=== PATIENT | female | born 1970 | race Caucasian/White ===

== ENCOUNTER 2022-05-15 08:20 | Outpatient (CLI) | payer BC, SELFPAY | END 2022-05-15 08:21 | disposition home or self-care (01) | PROVIDERS: PCP Physician Assistant; Visit Provider Internal Medicine | DX: C79.31 Secondary malignant neoplasm of brain (principal) | CPT/HCPCS: 70553; A9575 ==

== ENCOUNTER 2022-07-21 08:52 | Outpatient (CLI) | payer BC, SELFPAY ==
--- NOTE | 2022-07-21 09:15 | CRLHL7_ITS ---
For Patients: As a result of the Century Cures Act, medical imaging exams and procedure reports are released immediately into your electronic medical record. You may view this report before your referring provider. If you have questions, please contact your health care provider. INDICATION: Metastases. Followup. COMPARISON: 05/15/2022. TECHNIQUE: Multiplanar T1, T2, FLAIR and diffusion-weighted imaging. Post gadolinium T1 weighted sequences. FINDINGS: Interval decrease in size of the ring-enhancing lesion along the cortex of the right superior lateral frontal lobe now measuring 3 mm in maximal diameter compared to 7 mm on the previous exam (compare series 18, image 36 of the current exam with series 11, image 34 of the previous exam). Similarly, interval decrease in size of the ring-enhancing lesion involving the cortex of the right parietal lobe now measuring 4 mm in maximal diameter compared to 7 mm previously (series 18, image 59 of the current exam compared to series 11, image 53 of the prior exam). Interval resolution of the metastatic lesion of the right frontal operculum (previously noted on series 11, image 70 of the prior exam). Tiny residual punctate focus of enhancement along the cortex of the superior left frontal lobe (series 8, image 28) measures approximately 2 mm in diameter and is unchanged from the prior exam. Similar tiny punctate enhancing metastases of the left superior frontal lobe and right frontal operculum which have resolved. No new abnormal enhancement or enhancing lesions. Vasogenic edema surrounding the larger metastatic lesions has also decreased. No intracranial hemorrhage. No abnormal ventricular dilatation. Intracranial vascular flow voids are preserved. No mass effect or midline shift. No restricted diffusion to suggest acute ischemia. Bilateral orbits are unremarkable. Normal appearing sella. Visualized paranasal sinuses remarkable. Left mastoid effusion. IMPRESSION: 1. Interval decrease in size of the ring-enhancing metastatic lesions of the right superior lateral frontal lobe and right parietal lobe. 2. Interval resolution of the tiny metastatic lesion of the right frontal operculum. Similarly, tiny punctate metastases of the left superior frontal lobe device with operculum have resolved. 3. Stable punctate enhancing metastasis along the cortex of the superior left frontal lobe 4. Overall, findings are consistent with response to treatment. 5. No acute intracranial abnormality Dictated by Jericho Cain MD @ 07/21/2022 3:27:10 PM (Electronically Signed)
== END 2022-07-21 08:53 | disposition home or self-care (01) ==
LOC: MRI 08:52
PROVIDERS: PCP Physician Assistant; Visit Provider Physician Assistant
DX: C79.31 Secondary malignant neoplasm of brain (principal)
CPT/HCPCS: 70553; A9575

== ENCOUNTER 2022-08-16 14:40 | Inpatient (IN) | payer BC, SELFPAY ==
[2022-08-16] VITALS (13 sets, daily range): BP systolic 64–121; BP diastolic 37–83; PULSE 97–115; RESP 18–20; TEMP 36.1–38.1; O2SAT 92–97; BMI 27.4; BMI 28.4
[2022-08-16 15:48] LABS: PCR FLU A Negative PCR FLU A (Negative); PCR FLU B Negative PCR FLU B (Negative); PCR RSV Negative PCR RSV (Negative)
--- NOTE | 2022-08-16 15:50 | ED.GENADULT ---
HPI - General Adult General Chief complaint: Weakness Stated complaint: dizzy, constant diarrhea Time Seen by Provider: 08/16/22 15:27 Source: patient History of Present Illness HPI narrative: 51-year-old female with a history of stage IV metastatic non-small cell lung cancer presents with a 4 day history of worsening weakness and now diarrhea. Initially started with headache, mild weakness. The next day which was 3 days ago she started having watery stools, proximally 5 times per day. She did try taking some Imodium 1 dose twice daily and it did help with her symptoms temporarily but she did not continue taking multiple subsequent doses each day. No blood in her stools. No known sick contacts. No fevers. She is on immunotherapy for [id number] lung cancer but no specific chemotherapies. She had been on radiation for several weeks but discontinued due to feeling poorly overall and hair loss. Not known to be hyponatremic, have potassium balance issues or other electrolyte abnormalities which can come without type of lung cancer. Is not take long-term nausea medicines but is feeling nauseated today. She accepts offer for medication when I offer. She does not have a history of C diff, denies any recent antibiotic usage. No known sick contacts. No prior history of similar symptoms. No recent surgeries. Past medical history is notable for hypertension, modified on lisinopril. She also has a history of non-small cell lung cancer, stage IV as described above. Prior but no other abdominal surgeries. Long-term meds include lisinopril, her immunotherapy and gabapentin 200 mg at bedtime. Social and family history reviewed from Oncology records. ROS is notable for generalized weakness and the GI symptoms as above, mild headache has improved. Otherwise denies times 12 systems. Related Data Home Medications Medication Instructions Recorded Confirmed ibuprofen 200 mg tablet (Advil) 1,200 mg PO BID PRN 05/06/22 07/24/22 melatonin 10 mg capsule 10 mg PO QHS 07/24/22 07/24/22 Previous Rx's Medication Instructions Recorded ondansetron 4 mg disintegrating 4 mg PO Q6H PRN nausea and 06/19/22 tablet vomiting #30 tabs prochlorperazine maleate 10 mg 10 mg PO QID PRN nausea and 06/19/22 tablet vomiting #45 tabs gabapentin 100 mg capsule 200 mg PO DAILY #60 caps 07/08/22 lisinopril 10 mg tablet 10 mg PO QDAY #60 tabs 07/08/22 Allergies Allergy/AdvReac Type Severity Reaction Status Date / Time amoxicillin Allergy Severe hives Verified 08/16/22 14:54 [facility] Medical History Tobacco use Surgical History S/P radiation therapy Social History Smoking Status: Current every day smoker Exam Const: Vital Signs, click to edit/add: Vital Signs - 24 hr 08/16/22 14:50 Temperature 99.8 F H Pulse Rate [Pulse Oximeter] 115 H Respiratory Rate 20 Blood Pressure [Ri ght Upper Arm] 97/63 Pulse Oximetry 96 Oxygen Delivery Me thod Room Air Documenting provider has reviewed patient's vital signs: yes Common normals: no apparent distress General appearance: cooperative and comfortable HENMT: Common normals: normocephalic and head/scalp atraumatic Head and scalp: normocephalic and atraumatic Mouth: oral and palatal mucosa normal Throat: posterior oropharynx normal Eye: Common normals: conjunctivae normal (Mild conjunctival pallor) Conjunctiva: conjunctiva(e) normal (Mild conjunctival pallor) Neck & C-Spine: Common normals: full ROM and no lymphadenopathy Resp: Common normals: normal respiratory effort, no use of accessory muscles and clear to auscultation bilaterally Effort & inspection: able to speak in complete sentences Auscultation: clear to auscultation bilaterally Cardio: Common normals: regular rate, regular rhythm, S1 normal heart sound, S2 normal heart sound, no murmurs and peripheral pulses 2+ throughout Rate: regular rate Rhythm: regular rhythm Heart sounds: S1 normal and S2 normal Peripheral pulses: pulses 2+ throughout GI: Other: Bowel sounds are a little hyperactive but present in all 4 quadrants. The abdomen is nondistended and soft. It is nontender. No mass. Extremity: Common normals: normal to inspection, full ROM, normal capillary refill and no pedal edema Neuro: Speech: speech normal Motor exam: no tremor noted and no movement abnormalities noted Psych: Attitude: calm and engaged Mood and affect: euthymic mood Insight: insight good Judgement: judgment good Skin: Common normals: no rashes or lesions noted General skin exam: no rashes or lesions noted Course Vital Signs Vital signs: Initial Vital Signs Temperature 99.8 F H 08/16/22 14:50 Temperature Source Temporal Artery Scan 08/16/22 14:50 Pulse Rate 115 H 08/16/22 14:50 Pulse Rhythm 08/16/22 14:50 Respiratory Rate 20 08/16/22 14:50 Blood Pressure 97/63 08/16/22 14:50 Blood Pressure Mean 74 08/16/22 14:50 Blood Pressure Position Sitting 08/16/22 14:50 Pulse Oximetry 96 08/16/22 14:50 Oxygen Delivery Method 08/16/22 14:50 Vital Signs Temperature 99.8 F H 08/16/22 14:50 Pulse Rate 115 H 08/16/22 14:50 Respiratory Rate 20 08/16/22 14:50 Blood Pressure 97/63 08/16/22 14:50 Pulse Oximetry 96 08/16/22 14:50 Oxygen Delivery Method 08/16/22 14:50 Temperature 99.8 F H 08/16/22 14:50 Pulse Rate 115 H 08/16/22 14:50 Respiratory Rate 20 08/16/22 14:50 Blood Pressure 97/63 08/16/22 14:50 Pulse Oximetry 96 08/16/22 14:50 Oxygen Delivery Method 08/16/22 14:50 Medical Decision Making MDM Narrative Medical decision making narrative: Wide differential diagnosis for the etiology of her diarrhea. C diff, colitis, high risk for electrolyte abnormalities due to [id number] lung cancer, typical gastroenteritis versus obstruction related to her cancer. Will start with fluid, C diff sample and labs. Low threshold for getting a CT though exam was initially reassuring. [place] per her request. Update: Discussed electrolyte abnormalities and renal failure with patient. I suspect the etiology is continued use of lisinopril compounded by hypotension from increased disease and debility with gastroenteritis. She does have a low-grade fever but no significant white count. I did not do a CT scan. Was given 1 L of LR, [address] Magdaleno has accepted admission for management of renal failure. She lets me know she had not taken her lisinopril this morning which is actually great. Recommend discontinuation of lisinopril for now. Awaiting C diff to determine if Imodium is safe, defer further workup of diarrhea to hospitalist team. Lab Data Lab results reviewed: Yes I reviewed the patient's lab results Labs: Lab Results 08/16/22 08/16/22 08/16/22 Range/Units 14:55 15:50 15:50 WBC 6.81 (4.50-11.00) K/uL RBC 4.44 (4.00-5.20) m/uL Hgb 14.3 (12.0-16.0) gm/dL Hct 42.0 (33.0-51.0) % MCV 95 (80-100) fL MCH 32 (26-34) pg MCHC 34 (32-36) gm/dL RDW Coeff of Bryon 15.2 (11.5-15.5) % Plt Count 183 (140-440) K/uL Neut % (Auto) 63.8 (42.0-72.0) % Lymph % (Auto) 21.7 (20-44) % Appling % (Auto) 11.6 H (0.0-11.0) % Eos % (Auto) 1.8 (0.0-7.0) % Baso % (Auto) 0.4 (0.0-3.0) % Neut # (Auto) 4.34 (1.7-7.0) K/uL Lymph # (Auto) 1.48 (0.90-2.90) K/uL Appling # (Auto) 0.80 (0.00-0.90) K/UL Eos # (Auto) 0.12 (0.00-0.50) K/uL Baso # (Auto) 0.03 (0.00-0.30) K/uL Sodium 132 L (135-149) mmol/L Potassium 3.0 L (3.6-5.1) mmol/L Chloride 96 (96-114) mmol/L Carbon Dioxide 27 (20-32) mmol/L BUN 27 H (5-24) mg/dL Creatinine 4.1 H (0.5-1.5) mg/dL Estimated Creat Clear 15.54 Estimated GFR 13 ml/min Glucose 96 (60-115) mg/dL Lactate (0.5-1.9) mmol/L Calcium 7.8 L (8.4-10.6) mg/dL Magnesium 2.2 (1.5-2.6) mg/dL Total Bilirubin 1.4 (0.1-1.5) mg/dL AST 27 (12-35) U/L ALT 30 (4-35) U/L Alkaline Phosphatase 83 (40-150) U/L Total Protein 6.7 (6.0-8.3) g/dL Albumin 3.7 (3.3-5.0) g/dL Lipase 32 (23-300) U/L SARS-CoV-2 (PCR) Negative SARS-CoV-2 (Negative) Influenza Type A (PCR) Negative PCR FLU A (Negative) Influenza Type B (PCR) Negative PCR FLU B (Negative) RSV (PCR) Negative PCR RSV (Negative) 08/16/22 08/16/22 Range/Units 15:50 15:50 WBC (4.50-11.00) K/uL RBC (4.00-5.20) m/uL Hgb (12.0-16.0) gm/dL Hct (33.0-51.0) % MCV (80-100) fL MCH (26-34) pg MCHC (32-36) gm/dL RDW Coeff of Bryon (11.5-15.5) % Plt Count (140-440) K/uL Neut % (Auto) (42.0-72.0) % Lymph % (Auto) (20-44) % Appling % (Auto) (0.0-11.0) % Eos % (Auto) (0.0-7.0) % Baso % (Auto) (0.0-3.0) % Neut # (Auto) (1.7-7.0) K/uL Lymph # (Auto) (0.90-2.90) K/uL Appling # (Auto) (0.00-0.90) K/UL Eos # (Auto) (0.00-0.50) K/uL Baso # (Auto) (0.00-0.30) K/uL Sodium (135-149) mmol/L Potassium (3.6-5.1) mmol/L Chloride (96-114) mmol/L Carbon Dioxide (20-32) mmol/L BUN (5-24) mg/dL Creatinine (0.5-1.5) mg/dL Estimated Creat Clear Estimated GFR ml/min Glucose (60-115) mg/dL Lactate 1.5 (0.5-1.9) mmol/L Calcium (8.4-10.6) mg/dL Magnesium Cancelled (1.5-2.6) mg/dL Total Bilirubin (0.1-1.5) mg/dL AST (12-35) U/L ALT (4-35) U/L Alkaline Phosphatase (40-150) U/L Total Protein (6.0-8.3) g/dL Albumin (3.3-5.0) g/dL Lipase (23-300) U/L SARS-CoV-2 (PCR) (Negative) Influenza Type A (PCR) (Negative) Influenza Type B (PCR) (Negative) RSV (PCR) (Negative) Renal failure most notable. Discharge Plan Discharge Clinical Impression: Acute renal failure, Diarrhea, Hypotension due to drugs, Acute hypokalemia Prescriptions: No Action ibuprofen [Advil] 200 mg tablet 1,200 mg PO BID PRN melatonin 10 mg capsule 10 mg PO QHS lisinopril 10 mg tablet 10 mg PO QDAY Qty: 60 0RF gabapentin 100 mg capsule 200 mg PO DAILY Qty: 60 0RF prochlorperazine maleate 10 mg tablet 10 mg PO QID MDD 4 PRN (Reason: nausea and vomiting) Qty: 45 1RF ondansetron 4 mg tablet,disintegrating 4 mg PO Q6H PRN (Reason: nausea and vomiting) Qty: 30 0RF Rx Instructions: Take for nausea or vomiting of prochlorperazine (compazine) ineffective. Follow Up/Referrals: Daysi Mendoza PA [Primary Care Provider] -
[2022-08-16 15:56] LABS: SARS PCR* Negative SARS-CoV-2 (Negative)
[2022-08-16] MEDS: LACTATED RINGERS 1000 ML 1,000 ML IV ×2 (16:00→18:40)
[2022-08-16 16:02] LABS: Lactate* 1.5 mmol/L (0.5-1.9)
[2022-08-16 16:11] LABS: Basophils Absolute Auto 0.03 K/uL (0.00-0.30); Basophils Percent Auto 0.4 % (0.0-3.0); Eosinophils Absolute Auto 0.12 K/uL (0.00-0.50); Eosinophils Percent Auto 1.8 % (0.0-7.0); Hemoglobin* 14.3 gm/dL (12.0-16.0); Immature Granulocytes Abs Auto 0.05 K/uL (0.00-0.30); Immature Granulocytes Pct Auto 0.7 %; Lymphocytes Absolute Auto 1.48 K/uL (0.90-2.90); Lymphocytes Percent Auto 21.7 % (20-44); Mean Corpuscular HGB Conc 34 gm/dL (32-36); Mean Corpuscular Hemoglobin 32 pg (26-34); Mean Corpuscular Volume 95 fL (80-100); Monocytes Percent Auto 11.6 % (0.0-11.0); Neutrophils Absolute Auto 4.34 K/uL (1.7-7.0); Neutrophils Percent Auto 63.8 % (42.0-72.0); Platelet Count* 183 K/uL (140-440); RDW Coefficient of Variation % 15.2 % (11.5-15.5); Red Blood Count 4.44 m/uL (4.00-5.20); White Blood Count* 6.81 K/uL (4.50-11.00)
[2022-08-16 16:15] LABS: Slide Review Reflex No
[2022-08-16 16:20] LABS: Chloride* 96 mmol/L (96-114)
[2022-08-16 16:21] LABS: Albumin* 3.7 g/dL (3.3-5.0); Sodium* 132 mmol/L (135-149)
[2022-08-16 16:23] LABS: Creatinine* 4.1 mg/dL (0.5-1.5); Est. Creatinine Clearance* 15.54; Estimated Glomerular Filt Rate 13 ml/min
[2022-08-16 16:24] LABS: Alanine Aminotransferase* 30 U/L (4-35); Alkaline Phosphatase* 83 U/L (40-150); Aspartate Amino Transferase* 27 U/L (12-35); Bilirubin Total* 1.4 mg/dL (0.1-1.5); Blood Urea Nitrogen* 27 mg/dL (5-24); Calcium* 7.8 mg/dL (8.4-10.6); Carbon Dioxide* 27 mmol/L (20-32); Glucose* 96 mg/dL (60-115); Lipase* 32 U/L (23-300); Total Protein* 6.7 g/dL (6.0-8.3)
[2022-08-16 16:25] LABS: Magnesium* 2.2 mg/dL (1.5-2.6)
--- NOTE | 2022-08-16 16:25 | ED.NURSE ---
gave pt warm blanket, per request
[2022-08-16] MEDS: ONDANSETRON 2 MG/ML inj 4 MG IVP (16:29)
[2022-08-16] MEDS: POTASSIUM CHLORIDE 10 MEQ CAPSULE ER 40 MEQ PO (16:53)
--- NOTE | 2022-08-16 17:22 | ED.NURSE ---
one liter of NS started per verbal order by MD Magdaleno
--- NOTE | 2022-08-16 17:39 | CRLHL7_ITS ---
For Patients: As a result of the Century Cures Act, medical imaging exams and procedure reports are released immediately into your electronic medical record. You may view this report before your referring provider. If you have questions, please contact your health care provider. Indication: Fever, JOLENE, diarrhea Technique: Noncontrast CT of the chest, abdomen pelvis. Please note that all CT scans at this facility use dose modulation, iterative reconstruction, and/or weight-based dosing when appropriate to reduce radiation dose to as low as reasonably achievable. Comparison: None available Findings: Thyroid unremarkable. Neck base unremarkable. Central airways appear patent. Esophagus is decompressed. Normal heart size. No pericardial effusion. Severe coronary artery calcifications. Normal course and caliber of thoracic aorta and pulmonary arteries. Right axillary lymphadenopathy (series 2, image 23) within a right axillary lymph node measuring 1.5 cm. There is soft tissue thickening along the right lateral chest wall (series 2, image 49). No discrete breast mass. Bibasilar atelectasis. Right middle lobe pulmonary nodule measuring less than 6 mm (series 2, image 59). There is some peripheral, subpleural ground-glass opacities within the bilateral upper lobes. There is mild paraseptal emphysema. There is no dominant pulmonary nodule or mass. No pleural effusion or pneumothorax. Normal liver size and contour. Gallbladder unremarkable. No biliary dilatation. Bilateral adrenal gland thickening. No hydronephrosis. Unremarkable spleen, pancreas, stomach and duodenum. Normal course and caliber of the abdominal aorta and the IVC. Moderate to severe atherosclerotic disease of the abdominal aorta. No significant lymphadenopathy. Bladder and uterus unremarkable. Liquid stool throughout the colon. There is severe colonic wall thickening involving the ascending colon (series 2, image 132) as well as the proximal transverse colon. There are additional areas of colonic wall thickening involving the distal transverse colon and descending colon. No definite pneumatosis. No significant free fluid in the pelvis. No evidence of abscess. No acute osseous abnormality. Impression: 1. Severe colonic wall thickening and pericolonic inflammation consistent with an infectious or inflammatory colitis. 2. Right axillary lymphadenopathy. Correlate with history of malignancy. 3. Right lateral chest wall skin thickening. Correlate with direct visualization. Please note that all CT scans at this facility use dose modulation, iterative reconstruction, and/or weight-based dosing when appropriate to reduce radiation dose to as low as reasonably achievable. Dictated by Isaias Ray MD @ 08/16/2022 7:07:57 PM (Electronically Signed)
[2022-08-16] MEDS: 0.9 % SODIUM CHLORIDE 1000 ml 1,000 ML IV (17:40)
--- NOTE | 2022-08-16 17:52 | ED.NURSE ---
RN to RN report given. Daughter with pt during transport from ED to [facility]. pt belongings with daughter.
--- NOTE | 2022-08-16 18:47 | PM.IMHP1 ---
Hospitalist- H&P: HPI History of Present Illness Date Seen: 08/16/22 Chief complaint: dizzy, constant dhiarrea Narrative: Renea Iyer is a 51 year old female with metastatic non-small cell lung cancer admitted through the emergency department with 1 week history of diarrhea and abdominal pain. Patient reports she was generally doing fairly well until about 1 week ago when she had onset of nonbloody watery diarrhea. She has had multiple episodes every day. She has had some headache with this and she reports an upset stomach with some mild constant abdominal discomfort. She has been able to eat but is eating very little because she has no appetite. She has not had vomiting. She is not aware of a fever though she has had a sense of fever and chills at times. She is taking Imodium which seems to help. She was diagnosed with high-grade metastatic adenocarcinoma in a lump on her chest April 2022. Subsequent evaluation showed this was from lung primary. She has metastatic disease to her brain. She underwent radiation treatment to her brain metastases and her right chest wall. She poorly tolerated it and it was discontinued. She is undergoing immune therapy with Nivolumab. She has had 3 previous treatments, 3 weeks apart. The last treatment, 3rd cycle, was about 16 days ago. No previous adverse reaction to immune therapy. She has no previous history of gastrointestinal problems. She reports no other recent illness. No respiratory symptoms, cough, cold, sore throat, shortness of breath. No urinary problems. Gastrointestinal problems as above. Review of Systems Narrative: Complete review of systems is unremarkable except as noted above PFSH PFSH Medical History Acute renal failure Brain metastases Colitis Hypertension Hypokalemia Non-small cell lung cancer Sepsis Tobacco use Surgical History (Updated 08/16/22 @ 19:31 by Junior Magdaleno MD) History of section S/P radiation therapy Family History (Updated 08/16/22 @ 19:32 by Junior Magdaleno MD) Father Melanoma Colon cancer Social History (Updated 08/16/22 @ 19:34 by Junior Magdaleno MD) Narrative: Renea lives in [place] with her daughter, Mariam, who is also healthcare power of bankruptcy attorney. Code status is DNR. She smokes a half pack of cigarettes a day. She does not drink alcohol. She does not use recreational drugs. She works at [employer] Smoking Status: Current every day smoker Meds Home Medications and Allergies Home Medications Medication Instructions Recorded Confirmed Type ibuprofen 200 mg tablet (Advil) 1,200 mg PO BID PRN 05/06/22 07/24/22 History melatonin 10 mg capsule 10 mg PO QHS 07/24/22 07/24/22 History Allergies Allergy/AdvReac Type Severity Reaction Status Date / Time amoxicillin Allergy Severe hives Verified 08/16/22 14:54 Exam Narrative: Exam Narrative: She is alert and appears in no distress. She gives her own history. Eyes are normal. Sclerae nonicteric. Oropharynx with dry mucous membranes. Otherwise normal. Neck is supple without mass or adenopathy or tenderness. Respirations are clear to auscultation. Cardiovascular: S1, S2, regular tachycardia. No murmur gallop or rub. Abdomen: Bowel sounds active. Abdomen is soft. She has [id number] right-sided tenderness and mild diffuse tenderness. No mass. External genitalia normal. Extremities are somewhat cool to touch. She has diminished pedal pulses. Somewhat sluggish capillary refill. No edema. Const: Vital Signs, click to edit/add: Vital Signs - 24 hr 08/16/22 14:50 08/16/22 17:35 Temperature 99.8 F H 100.5 F H Pulse Rate [Pulse Oximeter] 115 H 110 H Respiratory Rate 20 18 Blood Pressure [Ri ght Upper Arm] 97/63 85/56 L Pulse Oximetry 96 95 Oxygen Delivery Me thod Room Air Room Air Documenting provider has reviewed patient's vital signs: yes Hospitalist - H&P: Result Labs Labs: Short CBC 08/16/22 Range/Units 15:50 WBC 6.81 (4.50-11.00) K/uL Hgb 14.3 (12.0-16.0) gm/dL Hct 42.0 (33.0-51.0) % Plt Count 183 (140-440) K/uL BMP 08/16/22 15:50 Sodium 132 L Potassium 3.0 L Chloride 96 Carbon Dioxide 27 BUN 27 H Creatinine 4.1 H Glucose 96 Calcium 7.8 L Liver Function 08/16/22 Range/Units 15:50 Total Bilirubin 1.4 (0.1-1.5) mg/dL AST 27 (12-35) U/L ALT 30 (4-35) U/L Alkaline Phosphatase 83 (40-150) U/L Albumin 3.7 (3.3-5.0) g/dL Assessment and Plan Assessment and plan (1) Sepsis: Problem comment: Patient has fever, tachycardia, hypotension. Likely due to colitis seen on CT scan. Treat with methylprednisolone and broad-spectrum antibiotics and fluids. Monitor for need for pressors. Status: Acute (2) Colitis: Problem comment: CT 08/16/2022 shows severe colitis in ascending and proximal transverse colon and patchy colitis through distal transverse and descending colon. Possibly due to Nivolumab/immune checkpoint inhibitor colitis. When stable consider flex sig. C diff and stool cultures pending. Status: Acute (3) Acute renal failure: Problem comment: Combination of dehydration, hypotension, sepsis, lisinopril, ibuprofen. Fluid resuscitation. Hold lisinopril and ibuprofen. Renally dose medications. Monitor I&O. Status: Acute (4) Non-small cell lung cancer: Status: Acute (5) Brain metastases: Status: Acute (6) Hypokalemia: Problem comment: Replace and follow Status: Acute (7) Hyponatremia: Problem comment: Monitor with fluid resuscitation Status: Acute Plan Admitted to CCU for management of sepsis. If needing pressors may benefit from ICU care in tertiary care center. 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 Oncology and GI consults. Total time spent today is 100 minutes in critical care evaluation and treatment
[2022-08-16 18:59] LABS: Appearance Urine Turbid (Clear); Bilirubin Urine 3+ (Negative); Blood Urine Trace-lysed (Negative); Color Urine Yellow (Yellow); Glucose Urine Negative (Negative); Ketones Urine Trace (Negative); Leukocyte Esterase Urine Negative (Negative); Nitrite Urine Positive (Negative); Protein Urine 2+ (Negative); Specific Gravity Urine >= 1.030 (1.000-1.030); Urobilinogen Urine 0.2 (0.2-1.0); pH Urine 5.5 (5.0-8.5)
[2022-08-16] MEDS: METHYLPREDNISOLONE SOD SUCC 62.5 MG/ML (125) 125 MG IVP (19:06)
[2022-08-16 19:08] LABS: Free T4 Free Thyroxine* 0.57 ng/dL (0.70-1.85)
[2022-08-16 19:25] LABS: C.Difficile Negative (Negative); CDIFFEPI 027 PRESUMPTIVE NEGATIVE (Negative)
[2022-08-16 19:25] LABS: Troponin I* 0.02 ng/mL (0.01-0.04)
[2022-08-16] MEDS: LACTATED RINGERS 1000 ML 1,000 ML 125 ML IV (19:30)
[2022-08-16 20:07] LABS: Bacteria Urine Few; Squamous Epithelial Cell Urine Moderate (None-Few)
[2022-08-16 20:08] LABS: Amorphous Sediment Urine Few; Coarse Granular Casts Urine Few; Hyaline Casts Urine Moderate (None-Few)
[2022-08-16 20:09] LABS: Other Casts Urine Few
[2022-08-16] MEDS: 0.9 % SODIUM CHLORIDE 250 ml IV (21:34)
[2022-08-16] MEDS: SODIUM CHLORIDE 0.9 % (FLUSH) 10 ML SYRINGE 5 ML IVF ×2 (21:34)
[2022-08-16] MEDS: POTASSIUM BICARB 25 MEQ EFFERVESCENT TAB PO (23:19)
[2022-08-16] MEDS: LOPERAMIDE HCL 2 MG CAPSULE PO (23:20)
[2022-08-17] VITALS (7 sets, daily range): BP systolic 115–157; BP diastolic 80–105; PULSE 66–95; RESP 16–18; TEMP 36.6–37.2; O2SAT 93–97
[2022-08-17] MEDS: LACTATED RINGERS 1000 ML 1,000 ML 125 ML IV (03:55)
[2022-08-17 06:26] LABS: Hematocrit 34.4 % (33.0-51.0); Immature Granulocytes Abs Auto 0.05 K/uL (0.00-0.30); Immature Granulocytes Pct Auto 1.1 %; Mean Corpuscular HGB Conc 35 gm/dL (32-36); Mean Corpuscular Hemoglobin 32 pg (26-34); Mean Corpuscular Volume 93 fL (80-100); Monocytes Percent Auto 1.5 % (0.0-11.0); Neutrophils Percent Auto 86.4 % (42.0-72.0); Platelet Count* 174 K/uL (140-440); RDW Coefficient of Variation % 14.5 % (11.5-15.5); Red Blood Count 3.72 m/uL (4.00-5.20); White Blood Count* 4.53 K/uL (4.50-11.00)
[2022-08-17 06:29] LABS: Slide Review Reflex No
[2022-08-17 06:35] LABS: Lactate* 0.8 mmol/L (0.5-1.9)
[2022-08-17 06:40] LABS: Albumin* 3.2 g/dL (3.3-5.0); Chloride* 106 mmol/L (96-114)
[2022-08-17 06:41] LABS: Potassium* 3.9 mmol/L (3.6-5.1); Sodium* 134 mmol/L (135-149)
[2022-08-17] MEDS: LOPERAMIDE HCL 2 MG CAPSULE PO (06:42)
[2022-08-17 06:43] LABS: Creatinine* 1.4 mg/dL (0.5-1.5); Est. Creatinine Clearance* 43.74; Estimated Glomerular Filt Rate 46 ml/min
[2022-08-17] MEDS: METHYLPREDNISOLONE SOD SUCC 62.5 MG/ML (125) IVP ×2 (06:43→19:59)
[2022-08-17 06:44] LABS: Alanine Aminotransferase* 30 U/L (4-35); Alkaline Phosphatase* 71 U/L (40-150); Aspartate Amino Transferase* 25 U/L (12-35); Bilirubin Direct* 0.3 mg/dL (0.0-0.5); Bilirubin Total* 0.8 mg/dL (0.1-1.5); Blood Urea Nitrogen* 19 mg/dL (5-24); Calcium* 7.4 mg/dL (8.4-10.6); Carbon Dioxide* 24 mmol/L (20-32); Glucose* 140 mg/dL (60-115); Total Protein* 5.9 g/dL (6.0-8.3)
[2022-08-17 06:45] LABS: Magnesium* 2.1 mg/dL (1.5-2.6)
--- NOTE | 2022-08-17 06:51 | PC.NURSE ---
Shift note: Pt BPs up from 90ies to 120-150ies, she denies nausea, is afebrile. Pt received a dose of Imodium for diarrhea in PM and has had 1 incontinent stool overnight. Arroyo Cath is intact and draining, urine appears more clear and is geochemical manager this morning.
[2022-08-17 07:08] LABS: Troponin I* < 0.01 ng/mL (0.01-0.04)
[2022-08-17 07:24] LABS: C Reactive Protein* 41.1 mg/dL (0.5-1.0)
--- NOTE | 2022-08-17 11:03 | NUTR.NU ---
RDN with nutrition screen related to patient with cancer dx and currently on treatment. RDN visited with patient and daughter whom reported her weight has been stable recently (08/16/22: 170 lbs; 07/31/22: 172 lbs; 07/08/23: 170 lbs). She is receiving palliative treatment currently for metastatic non-small cell lung cancer with mets. Patient reports her appetite has been good and she is able to eat multiple meals daily. She does not drink nutritional supplements at home. She declined scheduled supplements/snacks at this time. Current diet is full liquids. She had no questions or concerns at this time. RDN will continue to monitor and follow-up prn.
--- NOTE | 2022-08-17 13:43 | P.IMPN_ITS ---
Progress Note: A&P Assessment and plan (1) Sepsis: Problem details: - patient admitted with fever, tachycardia, hypotension. Likely due to colitis seen on CT scan, also has grossly abnormal UA - blood, urine, and stool cultures currently NGTD - continue methylprednisolone, broad-spectrum antibiotics - patient with significant improvement on hospital day 1, we will stop IV fluids given po intake, moved to floor care Status: Acute (2) Colitis: Problem details: - CT 08/16/2022 shows severe colitis in ascending and proximal transverse colon and patchy colitis through distal transverse and descending colon. Possibly due to Nivolumab/immune checkpoint inhibitor colitis. When stable consider flex sig. C diff negative, stool cultures pending. Status: Acute (3) Acute renal failure: Problem details: - Combination of dehydration, hypotension, sepsis, lisinopril, ibuprofen - responded well to IVF resuscitation - continue to hold lisinopril and ibuprofen Status: Acute (4) Non-small cell lung cancer: Problem details: - sees Oncology locally Status: Acute (5) Brain metastases: Status: Acute (6) Hypokalemia: Problem details: - Replace and follow Status: Acute (7) Hyponatremia: Problem details: - stable/improved Status: Acute Plan - per above - remove Arroyo - Adan hose and SCDs for ppx - await culture results, continue Primaxin - PT and OT following Subjective Date Seen: 08/17/22 Interval history: Patient improved overnight, no concerns from nursing team. I see Renea this morning, she is feeling significantly better and requesting discharge home. She is amenable to staying in the hospital to await culture results, given her severity of illness upon admission and her comorbidities. She has no concerns for hospitalist team. Exam Narrative: Exam Narrative: GEN: Alert and oriented, answering questions appropriately HEENT: Normal external ears, EOMIs bilaterally, no scleral icterus CV: RRR, No concerning murmurs, rubs, or gallops R: LCTA bilaterally without concerning wheezing, rales, or rhonchi Ab: Soft and nontender, no concerning masses Ext: wwp, no concerning edema Skin: No concerning skin lesions or rashes on exposed skin Neuro: Nonfocal Psych: Appropriate Const: Vital Signs, click to edit/add: Vital Signs - 24 hr 08/16/22 14:50 08/16/22 17:35 08/16/22 18:08 Temperature 99.8 F H 100.5 F H 97 F L Pulse Rate Pulse Rate [Apical ] 114 H Pulse Rate [Pulse Oximeter] 115 H 110 H Respiratory Rate 20 18 20 Blood Pressure [Le ft Arm] 83/55 L Blood Pressure [Ri ght Upper Arm] 97/63 85/56 L Pulse Oximetry 96 95 97 Oxygen Delivery Me thod Room Air Room Air Room Air 08/16/22 19:00 08/16/22 18:15 08/16/22 18:30 Temperature Pulse Rate 104 H Pulse Rate [Apical ] Pulse Rate [Pulse Oximeter] Respiratory Rate Blood Pressure [Le ft Arm] 64/37 L 85/53 L Blood Pressure [Ri ght Upper Arm] Pulse Oximetry Oxygen Delivery Me thod 08/16/22 18:45 08/16/22 18:08 08/16/22 19:20 Temperature 99.6 F Pulse Rate Pulse Rate [Apical ] 108 H Pulse Rate [Pulse Oximeter] Respiratory Rate 18 Blood Pressure [Le ft Arm] 93/57 L 93/65 Blood Pressure [Ri ght Upper Arm] Pulse Oximetry 92 93 Oxygen Delivery Va thod Room Air Room Air 08/16/22 20:20 08/16/22 19:44 08/16/22 21:22 Temperature 99.4 F Pulse Rate 99 Pulse Rate [Apical ] 103 H 103 H Pulse Rate [Pulse Oximeter] Respiratory Rate 18 18 Blood Pressure [Le ft Arm] 91/63 Blood Pressure [Ri ght Upper Arm] Pulse Oximetry 92 Oxygen Delivery Va thod Room Air 08/16/22 23:00 08/16/22 23:00 08/16/22 23:44 Temperature 99.4 F Pulse Rate 99 Pulse Rate [Apical ] Pulse Rate [Pulse Oximeter] 97 Respiratory Rate 18 18 Blood Pressure [Le ft Arm] 121/83 Blood Pressure [Ri ght Upper Arm] Pulse Oximetry 93 Oxygen Delivery Me thod Room Air 08/17/22 03:00 08/17/22 03:00 08/17/22 03:00 Temperature 98.1 F Pulse Rate 94 Pulse Rate [Apical ] Pulse Rate [Pulse Oximeter] 94 Respiratory Rate 18 16 Blood Pressure [Le ft Arm] 151/98 H Blood Pressure [Ri ght Upper Arm] Pulse Oximetry 93 Oxygen Delivery Va thod Room Air 08/17/22 07:15 08/17/22 07:20 08/17/22 07:20 Temperature 98.3 F Pulse Rate 91 Pulse Rate [Apical ] Pulse Rate [Pulse Oximeter] 93 93 Respiratory Rate 16 16 Blood Pressure [Le ft Arm] 147/105 H Blood Pressure [Ri ght Upper Arm] Pulse Oximetry 93 Oxygen Delivery Me thod Room Air 08/17/22 10:54 Temperature 98.1 F Pulse Rate Pulse Rate [Apical ] Pulse Rate [Pulse Oximeter] 95 Respiratory Rate 18 Blood Pressure [Le ft Arm] 136/95 H Blood Pressure [Ri ght Upper Arm] Pulse Oximetry 97 Oxygen Delivery Me thod Room Air Labs Labs: Laboratory Results - last 24 hr 08/16/22 08/16/22 08/16/22 14:55 15:50 15:50 WBC 6.81 RBC 4.44 Hgb 14.3 Hct 42.0 MCV 95 MCH 32 MCHC 34 RDW Coeff of Bryon 15.2 Plt Count 183 Neut % (Auto) 63.8 Lymph % (Auto) 21.7 [place] % (Auto) 11.6 H Eos % (Auto) 1.8 Baso % (Auto) 0.4 Neut # (Auto) 4.34 Lymph # (Auto) 1.48 [place] # (Auto) 0.80 Eos # (Auto) 0.12 Baso # (Auto) 0.03 Sodium 132 L Potassium 3.0 L Chloride 96 Carbon Dioxide 27 BUN 27 H Creatinine 4.1 H Estimated Creat Clear 15.54 Estimated GFR 13 Glucose 96 Lactate Calcium 7.8 L Magnesium 2.2 Total Bilirubin 1.4 Direct Bilirubin AST 27 ALT 30 Alkaline Phosphatase 83 Troponin I 0.02 C-Reactive Protein 45.0 H Total Protein 6.7 Albumin 3.7 Lipase 32 Free T4 Urine Color Urine Appearance Urine pH Ur Specific [place] Urine Protein Urine Glucose (UA) Urine Ketones Urine Blood Urine Nitrite Urine Bilirubin Urine Urobilinogen Ur Leukocyte Esterase Urine RBC Urine WBC Ur Squamous Epith Cells Amorphous Sediment Urine Bacteria Hyaline Casts Coarse Granular Casts Other Casts Stl C.difficile Tox PCR St C. diff Tox Epid 027 SARS-CoV-2 (PCR) Negative SARS-CoV-2 Influenza Type A (PCR) Negative PCR FLU A Influenza Type B (PCR) Negative PCR FLU B RSV (PCR) Negative PCR RSV 08/16/22 08/16/22 08/16/22 15:50 15:50 15:50 WBC RBC Hgb Hct MCV MCH MCHC RDW Coeff of [place] Plt Count Neut % (Auto) Lymph % (Auto) [place] % (Auto) Eos % (Auto) Baso % (Auto) Neut # (Auto) Lymph # (Auto) [place] # (Auto) Eos # (Auto) Baso # (Auto) Sodium Potassium Chloride Carbon Dioxide BUN Creatinine Estimated Creat Clear Estimated GFR Glucose Lactate 1.5 Calcium Magnesium Cancelled Total Bilirubin Direct Bilirubin AST ALT Alkaline Phosphatase Troponin I C-Reactive Protein Total Protein Albumin Lipase Free T4 0.57 L Urine Color Urine Appearance Urine pH Ur Specific [place] Urine Protein Urine Glucose (UA) Urine Ketones Urine Blood Urine Nitrite Urine Bilirubin Urine Urobilinogen Ur Leukocyte Esterase Urine RBC Urine WBC Ur Squamous Epith Cells Amorphous Sediment Urine Bacteria Hyaline Casts Coarse Granular Casts Other Casts Stl C.difficile Tox PCR St C. diff Tox Epid 027 SARS-CoV-2 (PCR) Influenza Type A (PCR) Influenza Type B (PCR) RSV (PCR) 08/16/22 08/16/22 08/17/22 17:36 18:06 05:54 WBC 4.53 RBC 3.72 L Hgb 12.0 Hct 34.4 MCV 93 MCH 32 MCHC 35 RDW Coeff of [place] 14.5 Plt Count 174 Neut % (Auto) 86.4 H Lymph % (Auto) 11.0 L [place] % (Auto) 1.5 Eos % (Auto) 0.0 Baso % (Auto) 0.0 Neut # (Auto) 3.90 Lymph # (Auto) 0.50 L [place] # (Auto) 0.10 Eos # (Auto) 0.00 Baso # (Auto) 0.00 Sodium Potassium Chloride Carbon Dioxide BUN Creatinine Estimated Creat Clear Estimated GFR Glucose Lactate Calcium Magnesium Total Bilirubin Direct Bilirubin AST ALT Alkaline Phosphatase Troponin I C-Reactive Protein Total Protein Albumin Lipase Free T4 Urine Color Yellow Urine Appearance Turbid A Urine pH 5.5 Ur Specific [place] >= 1.030 Urine Protein 2+ A Urine Glucose (UA) Negative Urine Ketones Trace A Urine Blood Trace-lysed A Urine Nitrite Positive A Urine Bilirubin 3+ A Urine Urobilinogen 0.2 Ur Leukocyte Esterase Negative Urine RBC 2-5 A Urine WBC 2-5 Ur Squamous Epith Cells Moderate A Amorphous Sediment Few A Urine Bacteria Few A Hyaline Casts Moderate A Coarse Granular Casts Few A Other Casts Few A Stl C.difficile Tox PCR Negative St C. diff Tox Epid 027 PRESUMPTIVE NEGATIVE SARS-CoV-2 (PCR) Influenza Type A (PCR) Influenza Type B (PCR) RSV (PCR) 08/17/22 08/17/22 05:54 05:54 WBC RBC Hgb Hct MCV MCH MCHC RDW Coeff of [place] Plt Count Neut % (Auto) Lymph % (Auto) [place] % (Auto) Eos % (Auto) Baso % (Auto) Neut # (Auto) Lymph # (Auto) [place] # (Auto) Eos # (Auto) Baso # (Auto) Sodium 134 L Potassium 3.9 Chloride 106 Carbon Dioxide 24 BUN 19 Creatinine 1.4 Estimated Creat Clear 43.74 Estimated GFR 46 Glucose 140 H Lactate 0.8 Calcium 7.4 L Magnesium 2.1 Total Bilirubin 0.8 Direct Bilirubin 0.3 AST 25 ALT 30 Alkaline Phosphatase 71 Troponin I < 0.01 L C-Reactive Protein 41.1 H Total Protein 5.9 L Albumin 3.2 L Lipase Free T4 Urine Color Urine Appearance Urine pH Ur Specific [place] Urine Protein Urine Glucose (UA) Urine Ketones Urine Blood Urine Nitrite Urine Bilirubin Urine Urobilinogen Ur Leukocyte Esterase Urine RBC Urine WBC Ur Squamous Epith Cells Amorphous Sediment Urine Bacteria Hyaline Casts Coarse Granular Casts Other Casts Stl C.difficile Tox PCR St C. diff Tox Epid 027 SARS-CoV-2 (PCR) Influenza Type A (PCR) Influenza Type B (PCR) RSV (PCR)
--- NOTE | 2022-08-17 14:29 | PC.NURSE ---
End of shift. pt has been very pleasant. no pain. sister is here all day and she is loving and caring. IV was patent and later it was SL. PT and OT worked with here. Cruz was d/c @ 1100 400 out. she had a BM and a tiny amount of urine. she is up with SBA, she is alert x4. no nausea today but her appetite is poor. she is drinking well 1200 po in. tele shows NSR. she is getting IV antibiotics and steroids. she was d/c from the unit and is a floor pt.
[2022-08-17] MEDS: SODIUM CHLORIDE 0.9 % (FLUSH) 10 ML SYRINGE 5 ML IVF (20:01)
[2022-08-17] MEDS: MELATONIN 3 MG TABLET 9 MG PO (20:02)
[2022-08-18 03:00] VITALS: BP 133/65; PULSE 74; RESP 16; TEMP 36.4; O2SAT 93
[2022-08-18 06:38] LABS: Basophils Absolute Auto 0.01 K/uL (0.00-0.30); Basophils Percent Auto 0.2 % (0.0-3.0); Hemoglobin* 10.8 gm/dL (12.0-16.0); Immature Granulocytes Abs Auto 0.04 K/uL (0.00-0.30); Immature Granulocytes Pct Auto 0.8 %; Mean Corpuscular HGB Conc 35 gm/dL (32-36); Mean Corpuscular Hemoglobin 32 pg (26-34); Mean Corpuscular Volume 91 fL (80-100); Monocytes Percent Auto 3.1 % (0.0-11.0); Neutrophils Percent Auto 85.9 % (42.0-72.0); Platelet Count* 173 K/uL (140-440); RDW Coefficient of Variation % 14.6 % (11.5-15.5); Red Blood Count 3.41 m/uL (4.00-5.20)
--- NOTE | 2022-08-18 06:40 | PC.NURSE ---
Patient is alert and oriented x4, denies pain on assessment. IV antibiotic infused. Independent in room, continent of bowel and bladder. VSS on RA, appears stable; will call appropriately. Call light within reach.
[2022-08-18 06:42] LABS: Slide Review Reflex No
[2022-08-18 06:53] LABS: Albumin* 3.2 g/dL (3.3-5.0); Chloride* 105 mmol/L (96-114); Sodium* 137 mmol/L (135-149)
[2022-08-18 06:54] LABS: Potassium* 3.6 mmol/L (3.6-5.1)
[2022-08-18 06:56] LABS: Creatinine* 0.9 mg/dL (0.5-1.5); Est. Creatinine Clearance* 68.04; Estimated Glomerular Filt Rate 78 ml/min
[2022-08-18 06:57] LABS: Alanine Aminotransferase* 46 U/L (4-35); Alkaline Phosphatase* 65 U/L (40-150); Aspartate Amino Transferase* 38 U/L (12-35); Bilirubin Direct* 0.3 mg/dL (0.0-0.5); Bilirubin Total* 0.6 mg/dL (0.1-1.5); Blood Urea Nitrogen* 16 mg/dL (5-24); Carbon Dioxide* 25 mmol/L (20-32); Glucose* 150 mg/dL (60-115); Total Protein* 5.8 g/dL (6.0-8.3)
[2022-08-18 06:58] LABS: Calcium* 7.9 mg/dL (8.4-10.6)
[2022-08-18 07:17] LABS: C Reactive Protein* 21.3 mg/dL (0.5-1.0)
[2022-08-18 07:21] VITALS: PULSE 82
[2022-08-18 07:25] VITALS: BP 141/92; PULSE 87; RESP 16; TEMP 36.8; O2SAT 95
[2022-08-18] MEDS: predniSONE 20 MG TABLET 60 MG PO (09:27)
[2022-08-18] MEDS: SODIUM CHLORIDE 0.9 % (FLUSH) 10 ML SYRINGE 5 ML IVF (09:29)
[2022-08-18 11:15] VITALS: BP 154/96; PULSE 88; RESP 16; TEMP 37.1; O2SAT 96
--- NOTE | 2022-08-18 11:41 | P.DS_ITS ---
DS: Providers Provider Date Seen: 08/18/22 Date of admission: 08/16/22 18:23 Primary care physician: SUGAR Rodriguez Admitting Clinician: Junior Magdaleno MD Consults: OT and PT Attending Physician on discharge: Paulette Starks MD Date of Discharge: 08/18/22 DS: Diagnosis Discharge Diagnosis (1) Colitis: Status: Acute Problem details: - patient admitted with fever, tachycardia, hypotension, likely 2/2 to colitis seen on 08/16/22 CT scan (infectious vs iatrogenic from Nivolumab) - blood, urine, and stool cultures currently NGTD - Significant improvement with steroids and broad-spectrum antibiotics - patient with significant improvement on hospital day 1; advanced diet and had no further diarrhea/vomiting, requesting d/c home on hospital day 2 - consider outpatient scope when stable if consistent with goals of care (2) Acute renal failure: Status: Acute Problem details: - Combination of dehydration, hypotension, sepsis, lisinopril, ibuprofen - responded well to IVF resuscitation, Creatinine <1 on discharge - Lisinopril and Ibuprofen held during stay (3) Non-small cell lung cancer: Status: Acute Problem details: - sees Oncology locally, known metastatic disease (4) Hypokalemia: Status: Acute Problem details: - Replace and follow, normal on discharge (5) Hyponatremia: Status: Acute Problem details: - stable/improved to normal upon discharge (6) Normocytic anemia: Status: Acute Problem details: - noted on day of discharge; likely 2/2 fluid resuscitation, no evidence of acute bleeding DS: Summary Hospital Course Hospital Course: Renea is a very pleasant 51-year-old female who was admitted to the hospital with nausea vomiting and diarrhea. Her CT scan exhibited colitis and her admission findings (fever, leukocytosis, JOLENE, hypotension) were consistent with sepsis. There was concern that colitis was either infectious versus iatrogenic in nature given recent chemotherapy treatment (known metastatic cancer). Steroids and antibiotics were initiated, and patient had significant improvement on hospital day 1. She advanced diet, ambulated without assistance, had no further symptoms or concerns for hospitalist team, requesting discharge home on hospital day 2. Patient lives with daughter and has followup scheduled with Oncology in 48 hours. Renea was discharged home in improved condition on oral steroids and antibiotics on 08/18/22. Status at Discharge Functional status at discharge: independent ambulation Overall status at discharge: patient is progressing back to baseline Time Spent with Patient Time attestation: Total time spent providing and/or coordinating discharge services: Time spent: Greater than 30 minutes Specific discharge activities: Reviewing plan of care with Oncology team, medication reconciliation, patient updates, documentation Exam Narrative: Exam Narrative: GEN: Alert and oriented, sitting up in bed and appears nontoxic. Speaking in full sentences HEENT: Normal external ears, EOMIs bilaterally, no scleral icterus CV: RRR, soft systolic murmur without concerning features noted R: LCTA bilaterally without concerning wheezing, rales, or rhonchi Ext: wwp, no concerning edema Skin: Hyperpigmented, indurated lesion on right chest wall is stable Neuro: Nonfocal Psych: Appropriate Const: Vital Signs, click to edit/add: Vital Signs - 24 hr 08/17/22 15:00 08/17/22 15:00 08/17/22 15:00 Temperature 97.8 F Pulse Rate 91 Pulse Rate [Apical ] Pulse Rate [Pulse Oximeter] 89 89 Respiratory Rate 18 18 Blood Pressure [Le ft Arm] 157/93 H Pulse Oximetry 96 Oxygen Delivery Me thod Room Air 08/17/22 19:00 08/17/22 23:00 08/17/22 23:00 Temperature 98.9 F 97.9 F Pulse Rate Pulse Rate [Apical ] Pulse Rate [Pulse Oximeter] 94 94 66 Respiratory Rate 16 16 16 Blood Pressure [Le ft Arm] 142/99 H 115/80 Pulse Oximetry 95 94 Oxygen Delivery Ms thod Room Air Room Air 08/18/22 03:00 08/17/22 23:00 08/18/22 07:21 Temperature 97.5 F L Pulse Rate 88 82 Pulse Rate [Apical ] Pulse Rate [Pulse Oximeter] 74 Respiratory Rate 16 Blood Pressure [Le ft Arm] 133/65 Pulse Oximetry 93 Oxygen Delivery Me thod Room Air 08/18/22 07:25 Temperature 98.2 F Pulse Rate Pulse Rate [Apical ] 87 Pulse Rate [Pulse Oximeter] 87 Respiratory Rate 16 Blood Pressure [Le ft Arm] 141/92 H Pulse Oximetry 95 Oxygen Delivery Ms thod Room Air DS: Data Data Completed and Pending Labs on day of discharge: Labs from last 24 hours 08/18/22 08/18/22 06:07 06:07 WBC 5.20 RBC 3.41 L Hgb 10.8 L Hct 31.0 L MCV 91 MCH 32 MCHC 35 RDW Coeff of Bryon 14.6 Plt Count 173 Neut % (Auto) 85.9 H Lymph % (Auto) 10.0 L [place] % (Auto) 3.1 Eos % (Auto) 0.0 Baso % (Auto) 0.2 Neut # (Auto) 4.50 Lymph # (Auto) 0.50 L [place] # (Auto) 0.20 Eos # (Auto) 0.00 Baso # (Auto) 0.01 Sodium 137 Potassium 3.6 Chloride 105 Carbon Dioxide 25 BUN 16 Creatinine 0.9 Estimated Creat Clear 68.04 Estimated GFR 78 Glucose 150 H Calcium 7.9 L Total Bilirubin 0.6 Direct Bilirubin 0.3 AST 38 H ALT 46 H Alkaline Phosphatase 65 C-Reactive Protein 21.3 H Total Protein 5.8 L Albumin 3.2 L Preliminary micro results at discharge 08/16/22 17:36 Urine Culture - Preliminary Urine,Clean Catch < 50,000 COL/ML LACTOBACILLUS SPECIES ISOLATED NO FURTHER WORKUP 08/16/22 17:58 Blood Culture - Preliminary Blood NO GROWTH AFTER 24 HOURS 08/16/22 17:53 Blood Culture - Preliminary Blood NO GROWTH AFTER 24 HOURS Discharge Plan Discharge Disposition: Home, Self-Care Date of Admission: 08/16/22 18:23 Attending Provider on Discharge: Paulette Starks Primary Care Provider: Daysi Mendoza Condition: Improved Anticipated Discharge Date/Time: 08/18/22 13:00 Discharge Medications: New prednisone 20 mg Tablet 20 mg PO DAILYWM Qty: 28 0RF Rx Instructions: 3 tabs (60mg) QD x3d, then 2 tabs (40mg) QD x5d, then 1 tab (20mg) Qd x5d, then 1/2 tab (10mg) daily for 7d, then stop ciprofloxacin HCl [Cipro] 500 mg tablet 500 mg PO BID 8 Days Qty: 16 0RF metronidazole 500 mg tablet 500 mg PO TID 8 Days Qty: 24 0RF Continued melatonin 10 mg capsule 10 mg PO QHS gabapentin 100 mg capsule 200 mg PO DAILY Qty: 60 0RF prochlorperazine maleate 10 mg tablet 10 mg PO QID MDD 4 PRN (Reason: nausea and vomiting) Qty: 45 1RF ondansetron 4 mg tablet,disintegrating 4 mg PO Q6H PRN (Reason: nausea and vomiting) Qty: 30 0RF Rx Instructions: Take for nausea or vomiting of prochlorperazine (compazine) ineffective. Held lisinopril 10 mg tablet 10 mg PO QDAY Qty: 60 0RF Hold Instructions: Resume on 08/20/22. restart on 08/20 if BP is >140/90 at Oncology followup appointment Discontinued ibuprofen [Advil] 200 mg tablet 1,200 mg PO BID PRN Discharge Orders: Discharge Order (Routine); Ordered 08/18/22 Ordered By: Paulette Starks Patient Education: Infectious Colitis (GEN) Additional Instructions: Hold your Lisinopril until your followup appointment with Oncology on 08/20 (you will restart it at that time if your BP is >140/90). Antibiotics and [facility] at [facility] - pick them up TODAY and take as directed. No work for the rest of this week; rest at home, stay hydrated, keep your followup appointments. Activity Level: No strenuous activity Discharge Diet: Low Fiber Diet Detail: [place] diet Follow Up Appointments: Leonela Mc MD [Staff Physician] - (Appt with Dr. Mc as scheduled on 08/20) Daysi Mendoza PA [Primary Care Provider] - Forms: Work/School Release, [employer] Info Instructions
[2022-08-18 12:09] VITALS: PULSE 82; RESP 16; TEMP 37.1
--- NOTE | 2022-08-18 14:20 | PC.NURSE ---
Pt UAL in room performing her own ADLs this morning. Eupneic, afebrile and in NAD. Diastolic bp slightly elevated, aware, pt to begin Lisinopril on . IV ATB infused w/o difficulty. Eval by Dr. Starks. Pt will f/up with Dr. Mc from [place] at [facility] on for her previously scheduled appt, d/to hx of Stage IV lung cancer. Pt verbalized understanding of d/c diagnosis, home meds, new prescriptions at [facility], f/up appts and sx to report urgently to physician. Tele indicates NSR this am. Two IV sites discontinued. Pt signed release of information for PHI prior to d/c.
--- NOTE | 2022-08-18 14:25 | PC.NURSE ---
Pt discharged via w/c at 1332 pm to own home with her dtr as transportation. Pt verbalized she had all her personal belongings, no inventory sheet completed at time of admission.
== END 2022-08-18 13:32 | disposition home or self-care (01) | DRG 720 ==
LOC: ED 16:15 → MEDSURG 17:40
PROVIDERS: Admitting Provider Family Medicine; Emergency Provider Family Medicine; PCP Physician Assistant; Visit Provider Family Medicine
DX: A41.9 Sepsis, unspecified organism (principal); K52.9 Noninfective gastroenteritis and colitis, unspecified; N17.9 Acute kidney failure, unspecified; C34.90 Malignant neoplasm of unspecified part of unspecified bronchus or lung; C79.31 Secondary malignant neoplasm of brain; E87.6 Hypokalemia; E87.1 Hypo-osmolality and hyponatremia; D64.9 Anemia, unspecified; I10 Essential (primary) hypertension; F17.210 Nicotine dependence, cigarettes, uncomplicated; E86.0 Dehydration
CPT/HCPCS: 36415; 51702; 51798; 71250; 74176; 80048; 80053; 80076; 81003; 81015; 83605; 83690; 83735; 84439; 84484; 85025; 86140; 87040; 87045; 87046; 87077; 87086; 87427; 87493; 87502; 87634; 87635; 93005; 97112; 97161; 97165; 97535; 99283; 99285; A9270; J0743; J2405; J2930; J3370; J7030; J7050; J7120; J7512

== ENCOUNTER 2022-09-14 07:46 | Outpatient (CLI) | payer BC, SELFPAY ==
--- NOTE | 2022-09-14 08:00 | CRLHL7_ITS ---
For Patients: As a result of the Century Cures Act, medical imaging exams and procedure reports are released immediately into your electronic medical record. You may view this report before your referring provider. If you have questions, please contact your health care provider. Indication: Follow-up colitis Technique: Postcontrast CT chest, abdomen and pelvis. 86 cc Isovue 370 intravenous contrast. Please note that all CT scans at this facility use dose modulation, iterative reconstruction, and/or weight-based dosing when appropriate to reduce radiation dose to as low as reasonably achievable. Comparison: CT 04/22/2022 and 08/16/2022. CT PET 05/01/2022. Findings: In the chest, slight enlargement of the right axillary lymph node now measuring 2.3 cm. Triangular area of focal soft tissue thickening along the right lateral chest wall in the subcutaneous fat is similar measuring 2.6 cm. Normal left axillary lymph nodes. Breast tissue appears normal. Visualized thyroid is unremarkable. Low-density lymph node in the left hilum is probably similar measuring 2.4 cm. This may be slightly increased in size. Subcentimeter mediastinal lymph nodes are unchanged. Post treatment changes are present to the hypermetabolic nodule within the superior segment of the left lower lobe with residual ill-defined curvilinear densities. Mild pulmonary fibrosis is present along with emphysematous change. No acute infiltrate. No fracture. In the abdomen, there is no suspicious intrahepatic mass. The gallbladder is incompletely distended. No biliary obstruction. Since the April 22, 2022 exam, the complex left adrenal lesions have diminished in size. The hypodense right adrenal lesion is similar. No hydronephrosis. Sub centimeters cyst within the anterior left kidney. Spleen normal. Pancreas normal. Atherosclerotic disease in the aorta. No enlarged mesenteric or retroperitoneal lymph nodes. Improved appearance of the colon with interval resolution of the wall thickening involving the hepatic flexure. No bowel obstruction. No free air. The previously noted subcutaneous abdominal wall masses are much decreased in size and conspicuity since the April 22, 2022 examination. Residual curvilinear density noted in both locations. A 3rd tiny lesion detected on the PET scan is not visualized on today`s study. In the pelvis, the previously noted lesion in the right gluteus muscle is no longer visualized. Normal bladder, uterus and ovaries. No abscess. No pelvic free fluid. No pelvic adenopathy. No fracture. Impression: Interval resolution of previously noted colitis involving the hepatic flexure. Post treatment changes to the abdominal wall subcutaneous fat nodular lesions and to the pulmonary nodule within the superior segment of the left lower lobe. Slight increased size of the enlarged right axillary lymph node and possibly the enlarged left hilar lymph node. Posttreatment changes to the subcutaneous mass along the lateral right chest wall. Posttreatment changes to the lesion within the right gluteus skylar muscle. Please note that all CT scans at this facility use dose modulation, iterative reconstruction, and/or weight-based dosing when appropriate to reduce radiation dose to as low as reasonably achievable. Dictated by Alexx Cordero MD @ 09/14/2022 11:56:46 AM (Electronically Signed)
== END 2022-09-14 07:47 | disposition home or self-care (01) ==
PROVIDERS: PCP Physician Assistant; Visit Provider Physician Assistant
DX: K52.9 Noninfective gastroenteritis and colitis, unspecified (principal); C34.90 Malignant neoplasm of unspecified part of unspecified bronchus or lung
CPT/HCPCS: 71260; 74177; Q9967

== ENCOUNTER 2022-10-08 14:01 | Emergency (ER) | payer BC, SELFPAY ==
[2022-10-08 14:11] VITALS: BP 102/71; PULSE 69; RESP 18; TEMP 37.7; O2SAT 96; BMI 25.8
--- NOTE | 2022-10-08 14:48 | CRLHL7_ITS ---
For Patients: As a result of the Century Cures Act, medical imaging exams and procedure reports are released immediately into your electronic medical record. You may view this report before your referring provider. If you have questions, please contact your health care provider. INDICATION: Fatigue. Lung cancer. TECHNIQUE: Two-view chest. COMPARISON: Correlation is made with a CT of the chest abdomen and pelvis September 14, 2022. FINDINGS: Clear lungs. Normal heart size and pulmonary vascularity. Normal included skeleton. IMPRESSION: Negative chest. Dictated by Eduard Stewart MD @ 10/08/2022 3:35:46 PM (Electronically Signed)
--- NOTE | 2022-10-08 14:51 | ED.GENADULT ---
HPI - General Adult General Chief complaint: Weakness Stated complaint: Weakness, lightheaded Time Seen by Provider: 10/08/22 14:40 History of Present Illness HPI narrative: This 51-year-old female has lung cancer with metastatic disease. This was discovered about 6 months ago and she has been undergoing chemotherapy. Her most recent infusion was 2 weeks ago with a [facility]. She states that she has been feeling weak and lightheaded. She arrives with a temperature at 99.8? F. She states that she does not feel feverish and is not thinking that she has some kind of infection. She states that she has some less urine output compared to earlier and has been taking fluids frequently. Related Data Home Medications Medication Instructions Recorded Confirmed melatonin 10 mg capsule 10 mg PO QHS 07/24/22 10/08/22 Previous Rx's Medication Instructions Recorded ondansetron 4 mg disintegrating 4 mg PO Q6H PRN nausea and 06/19/22 tablet vomiting #30 tabs gabapentin 100 mg capsule 200 mg PO DAILY #60 caps 07/08/22 lisinopril 10 mg tablet 10 mg PO QDAY #60 tabs 07/08/22 famotidine 20 mg tablet (Pepcid) 20 mg PO QDAY 24 days #24 tabs 09/17/22 prochlorperazine maleate 10 mg 10 mg PO QID PRN nausea and 09/30/22 tablet vomiting #45 tabs Allergies Allergy/AdvReac Type Severity Reaction Status Date / Time amoxicillin Allergy Severe hives Verified 10/08/22 14:16 Review of Systems Status of ROS: Reports: 10 or more systems reviewed and unremarkable except as noted in History and below Narrative: Constitutional: No fevers, no weight gain or loss. Eyes: No discharge. No vision changes. HENT: No congestion, no sore throat, no ear pain. Cardiovascular: No chest pain, no palpitations. Respiratory: No shortness of breath, no wheezes, no cough. Gastrointestinal: No abdominal pain, no vomiting, no diarrhea. Genitourinary: No dysuria, no hematuria. Musculoskeletal: Normal range of motion. Skin: No rashes, no pruritis. Neurological: No dizziness, sensory change, speech change. Generalized weakness and fatigue. She states she feels tired all the time. Endo/Heme/Allergies: No bruising or bleeding. No polydipsia. Pysch: no suicidality, no anxiety, no insomnia. All other systems reviewed and are negative. 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 - Secondary malignant neoplasm of other specified sites (ICD-10) Non-small cell lung cancer ?C34.90 - Malignant neoplasm of unspecified part of unspecified bronchus or lung (ICD-10) Sepsis ?A41.9 - Sepsis, unspecified organism (ICD-10) Tobacco use ?Z72.0 - Tobacco use (ICD-10) Surgical History (Updated 08/16/22 @ 19:31 by Junior Magdaleno MD) History of section ?Z98.891 - History of uterine scar from previous surgery (ICD-10) S/P radiation therapy ?Z92.3 - Personal history of irradiation (ICD-10) Family History (Updated 08/16/22 @ 19:32 by Junior Magdaleno MD) Father Melanoma Colon cancer Social History (Updated 08/16/22 @ 19:34 by Junior Magdaleno MD) Narrative: Renea lives in [place] with her daughter, Mariam, who is also healthcare power of associate attorney. Code status is DNR. She smokes a half pack of cigarettes a day. She does not drink alcohol. She does not use recreational drugs. She works at [employer] Smoking Status: Current every day smoker Caffeine: No service: No Exam Narrative: Exam Narrative: Constitutional: Well-developed, well-nourished, no acute distress. HEENT: Normocephalic, atraumatic. Neck: Normal range of motion. Nontender. Supple. Heart: Regular. No murmurs. Normal rate. Intact distal pulses. Lungs: Clear to auscultation. No chest discomfort. No wheezes, rhonchi, or rales. Abdomen: Normal bowel sounds. Nontender. No rebound tenderness. Genitalia: Deferred. Back: No midline tenderness. Normal range of motion. Extremities: Normal range of motion. No injury. Skin: Intact. No rash. Warm. No erythema or pallor. Neurologic: No altered sensation. No weakness. Alert and oriented. Psychiatric: No suicidality. No anxiety or depression. No insomnia. Nursing notes and vitals signs are reviewed. Const: Vital Signs, click to edit/add: Vital Signs - 24 hr 10/08/22 14:11 Temperature 99.8 F H Pulse Rate [Right Pulse Oximeter] 69 Respiratory Rate 18 Blood Pressure [Ri ght Upper Arm] 102/71 Pulse Oximetry 96 Oxygen Delivery Me thod Room Air Course Vital Signs Vital signs: Initial Vital Signs Temperature 99.8 F H 10/08/22 14:11 Temperature Source Temporal Artery Scan 10/08/22 14:11 Pulse Rate 69 10/08/22 14:11 Respiratory Rate 18 10/08/22 14:11 Blood Pressure 102/71 10/08/22 14:11 Blood Pressure Mean 81 10/08/22 14:11 Blood Pressure Position Sitting 10/08/22 14:11 Pulse Oximetry 96 10/08/22 14:11 Oxygen Delivery Method Room Air 10/08/22 14:11 Vital Signs Temperature 99.8 F H 10/08/22 14:11 Pulse Rate 69 10/08/22 14:11 Respiratory Rate 18 10/08/22 14:11 Blood Pressure 102/71 10/08/22 14:11 Pulse Oximetry 96 10/08/22 14:11 Oxygen Delivery Method Room Air 10/08/22 14:11 Temperature 99.8 F H 10/08/22 14:11 Pulse Rate 69 10/08/22 14:11 Respiratory Rate 18 10/08/22 14:11 Blood Pressure 102/71 10/08/22 14:11 Pulse Oximetry 96 10/08/22 14:11 Oxygen Delivery Method Room Air 10/08/22 14:11 Medical Decision Making MDM Narrative Medical decision making narrative: This patient is undergoing treatments for lung cancer. She is feeling excessively tired and was told by the infusion center that this is likely related to her medication treatments. She also reports some lightheadedness. An IV was established where she received a L of normal saline intravenously. Lab results returned with reassuring findings. It is noted that her sodium is a bit low at 126. Her potassium is also slightly low. She states that she has been drinking lots of fluids and maybe this is in excess compared to the sodium intake she is doing. Her cancer is not a non-small cell cancer and is less likely contributing to a paraneoplastic syndrome. I advised her to add some salt to her food or use electrolyte balance liquids. It seems that it is yet most likely that her fatigue is related to her infusion treatments for her cancer. At the time of discharge the patient appears safe for outpatient management. The treatment plan is reviewed along with written and verbal return precautions. Reasons to return and the importance of close followup were also reviewed. Lab Data Labs: Lab Results 10/08/22 10/08/22 10/08/22 Range/Units 15:20 15:20 15:20 WBC 8.01 (4.50-11.00) K/uL RBC 3.62 L (4.00-5.20) m/uL Hgb 11.8 L (12.0-16.0) gm/dL Hct 32.0 L (33.0-51.0) % MCV 88 (80-100) fL MCH 33 (26-34) pg MCHC 37 H (32-36) gm/dL RDW Coeff of Bryon 13.2 (11.5-15.5) % Plt Count 276 (140-440) K/uL Neut % (Auto) 62.4 (42.0-72.0) % Lymph % (Auto) 23.1 (20-44) % Jenkins % (Auto) 10.6 (0.0-11.0) % Eos % (Auto) 2.2 (0.0-7.0) % Baso % (Auto) 0.7 (0.0-3.0) % Neut # (Auto) 4.99 (1.7-7.0) K/uL Lymph # (Auto) 1.85 (0.90-2.90) K/uL Jenkins # (Auto) 0.80 (0.00-0.90) K/UL Eos # (Auto) 0.18 (0.00-0.50) K/uL Baso # (Auto) 0.06 (0.00-0.30) K/uL Sodium 126 L (135-149) mmol/L Potassium 3.5 L (3.6-5.1) mmol/L Chloride 97 (96-114) mmol/L Carbon Dioxide 19 L (20-32) mmol/L BUN 18 (5-24) mg/dL Creatinine 1.0 (0.5-1.5) mg/dL Estimated Creat Clear 68.65 Estimated GFR 69 ml/min Glucose 102 (60-115) mg/dL Calcium 8.3 L (8.4-10.6) mg/dL Total Bilirubin 1.4 Cancelled (0.1-1.5) mg/dL Direct Bilirubin 0.3 Cancelled (0.0-0.5) mg/dL AST 29 (12-35) U/L ALT (4-35) U/L Alkaline Phosphatase (40-150) U/L Total Protein (6.0-8.3) g/dL Albumin (3.3-5.0) g/dL SARS-CoV-2 (PCR) (Negative) Influenza Type A (PCR) (Negative) Influenza Type B (PCR) (Negative) RSV (PCR) (Negative) POC Troponin I (0.01-0.04) ng/ml 10/08/22 10/08/22 10/08/22 Range/Units 15:20 15:20 15:20 WBC (4.50-11.00) K/uL RBC (4.00-5.20) m/uL Hgb (12.0-16.0) gm/dL Hct (33.0-51.0) % MCV (80-100) fL MCH (26-34) pg MCHC (32-36) gm/dL RDW Coeff of Bryon (11.5-15.5) % Plt Count (140-440) K/uL Neut % (Auto) (42.0-72.0) % Lymph % (Auto) (20-44) % Jenkins % (Auto) (0.0-11.0) % Eos % (Auto) (0.0-7.0) % Baso % (Auto) (0.0-3.0) % Neut # (Auto) (1.7-7.0) K/uL Lymph # (Auto) (0.90-2.90) K/uL Jenkins # (Auto) (0.00-0.90) K/UL Eos # (Auto) (0.00-0.50) K/uL Baso # (Auto) (0.00-0.30) K/uL Sodium (135-149) mmol/L Potassium (3.6-5.1) mmol/L Chloride (96-114) mmol/L Carbon Dioxide (20-32) mmol/L BUN (5-24) mg/dL Creatinine (0.5-1.5) mg/dL Estimated Creat Clear Estimated GFR ml/min Glucose (60-115) mg/dL Calcium (8.4-10.6) mg/dL Total Bilirubin (0.1-1.5) mg/dL Direct Bilirubin (0.0-0.5) mg/dL AST Cancelled (12-35) U/L ALT 50 H Cancelled (4-35) U/L Alkaline Phosphatase 80 Cancelled (40-150) U/L Total Protein 6.8 (6.0-8.3) g/dL Albumin (3.3-5.0) g/dL SARS-CoV-2 (PCR) (Negative) Influenza Type A (PCR) (Negative) Influenza Type B (PCR) (Negative) RSV (PCR) (Negative) POC Troponin I (0.01-0.04) ng/ml 10/08/22 10/08/22 Range/Units 15:20 15:20 WBC (4.50-11.00) K/uL RBC (4.00-5.20) m/uL Hgb (12.0-16.0) gm/dL Hct (33.0-51.0) % MCV (80-100) fL MCH (26-34) pg MCHC (32-36) gm/dL RDW Coeff of Bryon (11.5-15.5) % Plt Count (140-440) K/uL Neut % (Auto) (42.0-72.0) % Lymph % (Auto) (20-44) % Jenkins % (Auto) (0.0-11.0) % Eos % (Auto) (0.0-7.0) % Baso % (Auto) (0.0-3.0) % Neut # (Auto) (1.7-7.0) K/uL Lymph # (Auto) (0.90-2.90) K/uL Jenkins # (Auto) (0.00-0.90) K/UL Eos # (Auto) (0.00-0.50) K/uL Baso # (Auto) (0.00-0.30) K/uL Sodium (135-149) mmol/L Potassium (3.6-5.1) mmol/L Chloride (96-114) mmol/L Carbon Dioxide (20-32) mmol/L BUN (5-24) mg/dL Creatinine (0.5-1.5) mg/dL Estimated Creat Clear Estimated GFR ml/min Glucose (60-115) mg/dL Calcium (8.4-10.6) mg/dL Total Bilirubin (0.1-1.5) mg/dL Direct Bilirubin (0.0-0.5) mg/dL AST (12-35) U/L ALT (4-35) U/L Alkaline Phosphatase (40-150) U/L Total Protein Cancelled (6.0-8.3) g/dL Albumin 4.0 Cancelled (3.3-5.0) g/dL SARS-CoV-2 (PCR) Negative SARS-CoV-2 (Negative) Influenza Type A (PCR) Negative PCR FLU A (Negative) Influenza Type B (PCR) Negative PCR FLU B (Negative) RSV (PCR) Negative PCR RSV (Negative) POC Troponin I 0.00 L (0.01-0.04) ng/ml Imaging Data Chest x-ray: Radiologist's impression: FINDINGS: Clear lungs. Normal heart size and pulmonary vascularity. Normal included skeleton. IMPRESSION: Negative chest. ECG Data Attestation: I personally reviewed and interpreted this ECG as follows: Interpretation: Sinus tachycardia, rate 110 beats per minute. There are no specific ST or T-wave abnormalities. Discharge Plan Discharge Clinical Impression: Hyponatremia, Non-small cell lung cancer, Metastatic cancer, Fatigue due to treatment Patient Disposition: Home, Self-Care Condition: Stable Additional Instructions: Continue current plans. Use electrolyte balanced liquids to restore sodium and potassium levels. Follow up with MD return if worsening. Prescriptions: No Action melatonin 10 mg capsule 10 mg PO QHS lisinopril 10 mg tablet 10 mg PO QDAY Qty: 60 0RF Hold Instructions: Resume on 08/20/22. restart on 2/9 if BP is >140/90 at Oncology followup appointment gabapentin 100 mg capsule 200 mg PO DAILY Qty: 60 0RF famotidine [Pepcid] 20 mg tablet 20 mg PO QDAY 24 Days Qty: 24 0RF Rx Instructions: Take one tablet daily while completing steroid taper. ondansetron 4 mg tablet,disintegrating 4 mg PO Q6H PRN (Reason: nausea and vomiting) Qty: 30 0RF Rx Instructions: Take for nausea or vomiting of prochlorperazine (compazine) ineffective. prochlorperazine maleate 10 mg tablet 10 mg PO QID MDD 4 PRN (Reason: nausea and vomiting) Qty: 45 1RF Follow Up/Referrals: Daysi Mendoza PA [Primary Care Provider] - Stand Alone Forms: [employer] Info Instructions
[2022-10-08] MEDS: 0.9 % SODIUM CHLORIDE 1000 ml 1,000 ML IV (15:21)
[2022-10-08 15:31] LABS: Basophils Absolute Auto 0.06 K/uL (0.00-0.30); Basophils Percent Auto 0.7 % (0.0-3.0); Eosinophils Absolute Auto 0.18 K/uL (0.00-0.50); Eosinophils Percent Auto 2.2 % (0.0-7.0); Hemoglobin* 11.8 gm/dL (12.0-16.0); Immature Granulocytes Abs Auto 0.08 K/uL (0.00-0.30); Lymphocytes Absolute Auto 1.85 K/uL (0.90-2.90); Lymphocytes Percent Auto 23.1 % (20-44); Mean Corpuscular HGB Conc 37 gm/dL (32-36); Mean Corpuscular Hemoglobin 33 pg (26-34); Mean Corpuscular Volume 88 fL (80-100); Monocytes Percent Auto 10.6 % (0.0-11.0); Neutrophils Absolute Auto 4.99 K/uL (1.7-7.0); Neutrophils Percent Auto 62.4 % (42.0-72.0); Platelet Count* 276 K/uL (140-440); RDW Coefficient of Variation % 13.2 % (11.5-15.5); Red Blood Count 3.62 m/uL (4.00-5.20); White Blood Count* 8.01 K/uL (4.50-11.00)
[2022-10-08 15:38] LABS: Slide Review Reflex No
[2022-10-08 15:45] LABS: Chloride* 97 mmol/L (96-114); Potassium* 3.5 mmol/L (3.6-5.1); Sodium* 126 mmol/L (135-149)
[2022-10-08 15:47] LABS: Carbon Dioxide* 19 mmol/L (20-32); Est. Creatinine Clearance* 68.65; Estimated Glomerular Filt Rate 69 ml/min
[2022-10-08 15:48] LABS: Alanine Aminotransferase* 50 U/L (4-35); Alkaline Phosphatase* 80 U/L (40-150); Aspartate Amino Transferase* 29 U/L (12-35); Bilirubin Direct* 0.3 mg/dL (0.0-0.5); Bilirubin Total* 1.4 mg/dL (0.1-1.5); Blood Urea Nitrogen* 18 mg/dL (5-24); Calcium* 8.3 mg/dL (8.4-10.6); Glucose* 102 mg/dL (60-115); Total Protein* 6.8 g/dL (6.0-8.3)
[2022-10-08 16:05] LABS: PCR FLU A Negative PCR FLU A (Negative); PCR FLU B Negative PCR FLU B (Negative); PCR RSV Negative PCR RSV (Negative)
[2022-10-08 16:10] LABS: SARS PCR* Negative SARS-CoV-2 (Negative)
[2022-10-08 17:24] VITALS: BP 117/74
== END 2022-10-08 17:26 | disposition home or self-care (01) ==
PROVIDERS: Emergency Provider Emergency Medicine Emergency Medical Services; PCP Physician Assistant
DX: E87.1 Hypo-osmolality and hyponatremia (principal); C34.90 Malignant neoplasm of unspecified part of unspecified bronchus or lung; C79.9 Secondary malignant neoplasm of unspecified site; R53.83 Other fatigue
CPT/HCPCS: 36415; 71046; 80048; 80076; 84484; 85025; 87040; 87502; 87634; 87635; 93005; 99284; 99285; J7030

== ENCOUNTER 2022-10-12 12:05 | Emergency (ER) | payer BC, SELFPAY ==
[2022-10-12 12:52] VITALS: BP 94/64; PULSE 110; RESP 16; TEMP 36.7; O2SAT 98; BMI 26.6
--- NOTE | 2022-10-12 13:15 | CRLHL7_ITS ---
For Patients: As a result of the Century Cures Act, medical imaging exams and procedure reports are released immediately into your electronic medical record. You may view this report before your referring provider. If you have questions, please contact your health care provider. Indication: Lung cancer with brain metastasis history, near-syncope Technique: Volumetric multidetector CT images of the head were obtained without the administration of low osmolar intravenous contrast. Comparison: MRI brain July 21, 2022 Findings: There is no intra-axial or extra-axial fluid collection. There is no mass effect or midline shift. The ventricles and sulci are normal in size and position for age. There is chronic small vessel disease change within the subcortical and periventricular white matter. No overt vasogenic edema or obvious parenchymal mass on CT. The mishra-white differentiation is otherwise preserved. The orbits and their contents are grossly within normal limits. The bony calvarium is grossly intact. The paranasal sinuses are clear. The mastoid air cells are well aerated. Impression: Chronic small-vessel disease changes of the white matter without acute intracranial abnormality. Punctate metastatic disease within the right parietal lobe seen on remote comparison MRI is not appreciated on CT. No evidence of radiologically evident metastatic changes on CT. For definitive characterization of known cerebral metastasis, follow-up with MRI. Please note that all CT scans at this facility use dose modulation, iterative reconstruction, and/or weight-based dosing when appropriate to reduce radiation dose to as low as reasonably achievable. Dictated by Kvng Durbin MD @ 10/12/2022 3:20:05 PM (Electronically Signed)
[2022-10-12 13:40] VITALS: BP 109/74
--- NOTE | 2022-10-12 14:21 | ED.GENADULT ---
HPI - General Adult General Date Seen: 10/12/22 Chief complaint: Syncope/Fainted Stated complaint: low sodium symptoms worsening Time Seen by Provider: 10/12/22 12:56 Source: patient Mode of arrival: ambulatory Limitations: no limitations History of Present Illness HPI narrative: Patient is a 51-year-old woman with an underlying history of non-small cell lung cancer, brain metastases, colitis a few months ago, recent visit for hyponatremia and weakness. She says she made an appointment to go to clinic today for follow-up but was advised to come here instead. She says for the past couple of days she has had spells where she feels like things go white for a minute or so. She says that she is awake and aware of everything during these episodes. She has not had anything to suggest seizure as best I can tell. She has not had any loss of consciousness. She says that her brain metastases as of a scan 4 months ago had shrunken and she says she was told that they were no longer visible. She has not had headaches or vomiting. A couple of days ago when she was here her sodium was 126. She says she has been trying to limit her water intake and has been drinking Gatorade instead. She has not added salt tablets or salt to her food, she says that she did not know anything about a recommendation to do that. She has had nonbloody diarrhea for few days, and is concerned that she might have colitis again. This was apparently a nonspecific colitis, she does not have a diagnosis previously of C diff.. She has not had any bloody stools, she denies abdominal pain, fevers, or other symptoms. She has not had an appetite, but says that is pretty typical due to her Keytruda. She has not had chest pain, cough, unusual shortness of breath, palpitations. Related Data Home Medications Medication Instructions Recorded Confirmed melatonin 10 mg capsule 10 mg PO QHS 07/24/22 10/12/22 famotidine 20 mg tablet 20 mg PO DAILY 10/12/22 10/12/22 prochlorperazine maleate 5 mg 5 mg PO 3XD PRN nausea/vomiting 10/12/22 10/12/22 tablet Previous Rx's Medication Instructions Recorded ondansetron 4 mg disintegrating 4 mg PO Q6H PRN nausea and 06/19/22 tablet vomiting #30 tabs prochlorperazine maleate 10 mg 10 mg PO QID PRN nausea and 09/30/22 tablet vomiting #45 tabs Allergies Allergy/AdvReac Type Severity Reaction Status Date / Time amoxicillin Allergy Severe hives Verified 10/12/22 12:59 Review of Systems Status of ROS: Reports: 10 or more systems reviewed and unremarkable except as noted in History and below 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 - Secondary malignant neoplasm of other specified sites (ICD-10) Non-small cell lung cancer ?C34.90 - Malignant neoplasm of unspecified part of unspecified bronchus or lung (ICD-10) Sepsis ?A41.9 - Sepsis, unspecified organism (ICD-10) Tobacco use ?Z72.0 - Tobacco use (ICD-10) Surgical History History of section ?Z98.891 - History of uterine scar from previous surgery (ICD-10) S/P radiation therapy ?Z92.3 - Personal history of irradiation (ICD-10) Family History Father Melanoma Colon cancer Social History Narrative: Renea lives in [place] with her daughter, Mariam, who is also healthcare power of civil attorney. Code status is DNR. She smokes a half pack of cigarettes a day. She does not drink alcohol. She does not use recreational drugs. She works at [email or web address] Smoking Status: Current every day smoker Caffeine: No Little interest or pleasure in doing things: not at all Feeling down, depressed, or hopeless: not at all service: No Exam Narrative: Exam Narrative: Vital signs as noted above. In general, an alert, nontoxic woman. Breathing easily. Head: Normocephalic, atraumatic. Eyes: Pupils are equal reactive. Extraocular movements are full. Conjunctivae are normal. ENT: Mucous membranes are moist. Throat is normal. Neck: Supple without lymphadenopathy. Heart: Mild tachycardia, no significant murmur. Lungs: Breath sounds are significantly decreased bilaterally. Increased work of breathing. No wheezing or crackles. Abdomen: Soft and nontender. Bowel sounds present. Extremities: Well perfused. No edema. No calf tenderness. Pulses intact. Neurologic: Patient is alert and oriented to person and place. Speech is fluent. Face is symmetric. Moves all extremities equally. Affect: Normal. Skin: Warm and dry. Well perfused. Const: Vital Signs, click to edit/add: Vital Signs - 24 hr 10/12/22 12:52 10/12/22 15:00 10/12/22 13:40 Temperature 98.1 F Pulse Rate [Right Pulse Oximeter] 110 H 113 H Pulse Rate [orthos tatic lying] Pulse Rate [orthos tatic sitting] Pulse Rate [orthos tatic standing] Respiratory Rate 16 Blood Pressure [Ri ght Upper Arm] 94/64 106/73 109/74 Blood Pressure [or thostatic lying] Blood Pressure [or thostatic sitting] Blood Pressure [or thostatic standing ] Pulse Oximetry 98 99 Oxygen Delivery Me thod Room Air Room Air 10/12/22 16:00 10/12/22 17:32 10/12/22 16:00 Temperature Pulse Rate [Right Pulse Oximeter] 110 H 105 H Pulse Rate [orthos tatic lying] 105 H Pulse Rate [orthos tatic sitting] 108 H Pulse Rate [orthos tatic standing] 114 H Respiratory Rate Blood Pressure [Ri ght Upper Arm] 132/80 128/82 Blood Pressure [or thostatic lying] 128/82 Blood Pressure [or thostatic sitting] 115/84 Blood Pressure [or thostatic standing ] 105/72 Pulse Oximetry 97 100 Oxygen Delivery Me thod Room Air Room Air Documenting provider has reviewed patient's vital signs: yes Course Course Hospital Course: Patient has complex medical history including metastatic cancer, colitis, hyponatremia, presents with difficult to characterize spells, perhaps near syncope. Given her cancer history, we will go ahead and do a CT of the head. EKG by my review showed a sinus tachycardia, ventricular rate of 105. No ST segment changes. I ordered orthostatic vital signs but have not seen the results of these yet. I did order a L of normal saline as well, and will recheck electrolytes. Other labs pending at this time. She does not have significant abdominal pain or bloody stools, no abdominal tenderness, she is afebrile. Awaiting labs and will decide on the society of imaging. Right now I do not see anything on history or physical exam to suggest significant infection. She does not have any chest pain or difficulty breathing, likelihood of acute coronary syndrome, PE, arrhythmia is relatively low. Troponin pending. Head CT by my review did not show acute findings. Final radiology read is as follows: Impression: Chronic small-vessel disease changes of the white matter without acute intracranial abnormality. Punctate metastatic disease within the right parietal lobe seen on remote comparison MRI is not appreciated on CT. No evidence of radiologically evident metastatic changes on CT. For definitive characterization of known cerebral metastasis, follow-up with MRI. I am not significantly concerned with small lesions, I do not think MRI is necessary today. The absence of significant edema or hemorrhage is noted on CT. Labs are notable for a normal white blood cell count, hemoglobin is 10 which is down a bit from a few days ago but it seems as if her hemoglobin seems to run in the 10-11 range. Decreased may be dilutional given that she is been having IV fluids. After 1 L of fluid, she remains orthostatic with a drop in her systolic blood pressure from 120 8-104, and tachycardia from 104-114. I did give her a 2 L of normal saline. She is feeling well at this time. Discussed with her that for today I do not think she needs an abdominal CT scan, but if she has new symptoms such as significant pain, bloody stools, fever etcetera she should come back. I do think would be reasonable for her to try dose or 2 of Imodium to see if that helps with the diarrhea. Otherwise continue with mild fluid restriction, she can add some salt to her diet or consider salt tablets as her sodium remains somewhat low at 127. Recheck in clinic in a couple of days. Vital Signs Vital signs: Initial Vital Signs Temperature 98.1 F 10/12/22 12:52 Temperature Source Temporal Artery Scan 10/12/22 12:52 Pulse Rate 110 H 10/12/22 12:52 Respiratory Rate 16 10/12/22 12:52 Blood Pressure 94/64 10/12/22 12:52 Blood Pressure Mean 74 10/12/22 12:52 Blood Pressure Position Sitting 10/12/22 12:52 Pulse Oximetry 98 10/12/22 12:52 Oxygen Delivery Method Room Air 10/12/22 12:52 Vital Signs Temperature 98.1 F 10/12/22 12:52 Pulse Rate 110 H 10/12/22 12:52 Respiratory Rate 16 10/12/22 12:52 Blood Pressure 94/64 10/12/22 12:52 Pulse Oximetry 98 10/12/22 12:52 Oxygen Delivery Method Room Air 10/12/22 12:52 Temperature 98.1 F 10/12/22 12:52 Pulse Rate 110 H 10/12/22 17:32 Respiratory Rate 16 10/12/22 12:52 Blood Pressure 132/80 10/12/22 17:32 Pulse Oximetry 97 10/12/22 17:32 Oxygen Delivery Method Room Air 10/12/22 17:32 Medical Decision Making Lab Data Labs: Lab Results 10/12/22 10/12/22 10/12/22 Range/Units 13:16 14:44 15:10 WBC 6.88 (4.50-11.00) K/uL RBC 3.06 L (4.00-5.20) m/uL Hgb 10.0 L (12.0-16.0) gm/dL Hct 27.4 L (33.0-51.0) % MCV 90 (80-100) fL MCH 33 (26-34) pg MCHC 37 H (32-36) gm/dL RDW Coeff of Bryon 12.7 (11.5-15.5) % Plt Count 433 (140-440) K/uL Neut % (Auto) 54.8 (42.0-72.0) % Lymph % (Auto) 24.1 (20-44) % [place] % (Auto) 17.4 H (0.0-11.0) % Eos % (Auto) 2.2 (0.0-7.0) % Baso % (Auto) 0.9 (0.0-3.0) % Neut # (Auto) 3.77 (1.7-7.0) K/uL Lymph # (Auto) 1.66 (0.90-2.90) K/uL [place] # (Auto) 1.20 H (0.00-0.90) K/UL Eos # (Auto) 0.15 (0.00-0.50) K/uL Baso # (Auto) 0.06 (0.00-0.30) K/uL Sodium 127 L (135-149) mmol/L Potassium 3.5 L (3.6-5.1) mmol/L Chloride 97 (96-114) mmol/L Carbon Dioxide 25 (20-32) mmol/L BUN 4 L (5-24) mg/dL Creatinine 0.6 (0.5-1.5) mg/dL Estimated Creat Clear 102.06 Estimated GFR 110 ml/min Glucose 93 (60-115) mg/dL Lactate 0.8 (0.5-1.9) mmol/L Calcium 7.8 L (8.4-10.6) mg/dL Magnesium 1.8 (1.5-2.6) mg/dL Total Bilirubin 0.9 (0.1-1.5) mg/dL Direct Bilirubin 0.3 (0.0-0.5) mg/dL AST 25 (12-35) U/L ALT 33 (4-35) U/L Alkaline Phosphatase 69 (40-150) U/L C-Reactive Protein 14.1 H (0.5-1.0) mg/dL Total Protein 5.9 L (6.0-8.3) g/dL Albumin 3.3 (3.3-5.0) g/dL Urine Color Eugenia A (Yellow) Urine Appearance Clear (Clear) Urine pH 5.5 (5.0-8.5) Ur Specific [place] 1.010 (1.000-1.030) Urine Protein Negative (Negative) Urine Glucose (UA) Negative (Negative) Urine Ketones 1+ A (Negative) Urine Blood Trace-intact A (Negative) Urine Nitrite Negative (Negative) Urine Bilirubin 1+ A (Negative) Urine Urobilinogen 1.0 (0.2-1.0) Ur Leukocyte Esterase Trace A (Negative) Urine RBC 0-2 (0-2) Urine WBC 0-2 (0-5) Ur Squamous Epith Cells Few (None-Few) Urine Bacteria Few A (None) POC Troponin I 0.01 (0.01-0.04) ng/ml Discharge Plan Discharge Clinical Impression: Orthostatic hypotension, Hyponatremia, Lung cancer Patient Disposition: Home, Self-Care Condition: Improved Instructions: Hyponatremia (ED), Syncope (ED) Additional Instructions: Your sodium is still on the low side. You can buy salt tablets at the drugstore or add salt to her food to help boost this. Continue to minimize how much free water you drink. Otherwise, your lab tests today look fairly normal. Your head CT was unremarkable. For now, you can try some Imodium for your diarrhea. If this does not improve or if you note new symptoms such as significant abdominal pain, fever, bloody stools etcetera you should be seen again for this. If you have fainting spells, seizure etcetera, you should be seen again the ER. Prescriptions: No Action melatonin 10 mg capsule 10 mg PO QHS prochlorperazine maleate 5 mg tablet 5 mg PO 3XD PRN (Reason: nausea/vomiting) famotidine 20 mg tablet 20 mg PO DAILY ondansetron 4 mg tablet,disintegrating 4 mg PO Q6H PRN (Reason: nausea and vomiting) Qty: 30 0RF Rx Instructions: Take for nausea or vomiting of prochlorperazine (compazine) ineffective. prochlorperazine maleate 10 mg tablet 10 mg PO QID MDD 4 PRN (Reason: nausea and vomiting) Qty: 45 1RF Follow Up/Referrals: Daysi Mendoza PA [Primary Care Provider] - Stand Alone Forms: [employer] Info Instructions
[2022-10-12] MEDS: 0.9 % SODIUM CHLORIDE 1000 ml 1,000 ML IV ×2 (14:52→16:28)
[2022-10-12 14:58] LABS: Appearance Urine Clear (Clear); Bilirubin Urine 1+ (Negative); Blood Urine Trace-intact (Negative); Color Urine Amber (Yellow); Glucose Urine Negative (Negative); Ketones Urine 1+ (Negative); Leukocyte Esterase Urine Trace (Negative); Nitrite Urine Negative (Negative); Protein Urine Negative (Negative); pH Urine 5.5 (5.0-8.5)
[2022-10-12 15:00] VITALS: BP 106/73; PULSE 113; O2SAT 99
[2022-10-12 15:11] LABS: Lactate* 0.8 mmol/L (0.5-1.9)
[2022-10-12 15:17] LABS: Bacteria Urine Few; RBC Urine 0-2 (0-2); Squamous Epithelial Cell Urine Few (None-Few); WBC Urine 0-2 (0-5)
[2022-10-12 15:18] LABS: Basophils Absolute Auto 0.06 K/uL (0.00-0.30); Basophils Percent Auto 0.9 % (0.0-3.0); Eosinophils Absolute Auto 0.15 K/uL (0.00-0.50); Eosinophils Percent Auto 2.2 % (0.0-7.0); Hematocrit 27.4 % (33.0-51.0); Immature Granulocytes Abs Auto 0.04 K/uL (0.00-0.30); Immature Granulocytes Pct Auto 0.6 %; Lymphocytes Absolute Auto 1.66 K/uL (0.90-2.90); Lymphocytes Percent Auto 24.1 % (20-44); Mean Corpuscular HGB Conc 37 gm/dL (32-36); Mean Corpuscular Hemoglobin 33 pg (26-34); Mean Corpuscular Volume 90 fL (80-100); Monocytes Percent Auto 17.4 % (0.0-11.0); Neutrophils Absolute Auto 3.77 K/uL (1.7-7.0); Neutrophils Percent Auto 54.8 % (42.0-72.0); Platelet Count* 433 K/uL (140-440); RDW Coefficient of Variation % 12.7 % (11.5-15.5); Red Blood Count 3.06 m/uL (4.00-5.20); White Blood Count* 6.88 K/uL (4.50-11.00)
[2022-10-12 15:20] LABS: Slide Review Reflex No
[2022-10-12 15:24] LABS: Troponin, Point-of-Care* 0.01 ng/ml (0.01-0.04)
[2022-10-12 15:25] LABS: Chloride* 97 mmol/L (96-114)
[2022-10-12 15:26] LABS: Albumin* 3.3 g/dL (3.3-5.0); Potassium* 3.5 mmol/L (3.6-5.1); Sodium* 127 mmol/L (135-149)
[2022-10-12 15:28] LABS: Creatinine* 0.6 mg/dL (0.5-1.5); Est. Creatinine Clearance* 102.06; Estimated Glomerular Filt Rate 110 ml/min
[2022-10-12 15:29] LABS: Alanine Aminotransferase* 33 U/L (4-35); Alkaline Phosphatase* 69 U/L (40-150); Aspartate Amino Transferase* 25 U/L (12-35); Bilirubin Direct* 0.3 mg/dL (0.0-0.5); Bilirubin Total* 0.9 mg/dL (0.1-1.5); Blood Urea Nitrogen* 4 mg/dL (5-24); Calcium* 7.8 mg/dL (8.4-10.6); Carbon Dioxide* 25 mmol/L (20-32); Glucose* 93 mg/dL (60-115); Total Protein* 5.9 g/dL (6.0-8.3)
[2022-10-12 15:30] LABS: Magnesium* 1.8 mg/dL (1.5-2.6)
[2022-10-12 15:48] LABS: C Reactive Protein* 14.1 mg/dL (0.5-1.0)
[2022-10-12 16:00] VITALS: BP 105/72; BP 115/84; BP 128/82; PULSE 105; PULSE 108; PULSE 114; O2SAT 100
[2022-10-12 17:32] VITALS: BP 132/80; PULSE 110; O2SAT 97
== END 2022-10-12 17:46 | disposition home or self-care (01) ==
PROVIDERS: Emergency Provider Emergency Medicine; PCP Physician Assistant
DX: E87.1 Hypo-osmolality and hyponatremia (principal); I95.1 Orthostatic hypotension; C34.90 Malignant neoplasm of unspecified part of unspecified bronchus or lung
CPT/HCPCS: 36415; 70450; 80048; 80076; 81001; 83605; 83735; 84484; 85025; 86140; 87086; 87493; 93005; 99284; J7030

== ENCOUNTER 2022-11-08 15:49 | Emergency (ER) | payer BC, SELFPAY ==
[2022-11-08] VITALS (10 sets, daily range): BP systolic 128–137; BP diastolic 81–91; PULSE 95–107; RESP 15; TEMP 36.2; O2SAT 98–100; BMI 28.3
--- NOTE | 2022-11-08 16:07 | CRLHL7_ITS ---
For Patients: As a result of the Century Cures Act, medical imaging exams and procedure reports are released immediately into your electronic medical record. You may view this report before your referring provider. If you have questions, please contact your health care provider. INDICATION: Abdominal pain; history of non-small cell lung carcinoma. COMPARISON: CT chest, abdomen and pelvis September 14, 2022. TECHNIQUE: CT abdomen and pelvis with intravenous contrast; coronal and sagittal reformats. FINDINGS: No abnormal intra pulmonary nodular densities through the lung bases. No evidence of pleural effusion. Normal size cardiac silhouette without any evidence of pericardial effusion. No focal hepatic or splenic pathology. No pancreatic pathology. Gallbladder is unremarkable. No adrenal pathology. No kidney stones or obstructive uropathy. No retroperitoneal lymphadenopathy. No evidence of abdominal or pelvic ascites. Normal appendix. Diverticulosis sigmoid colon without any CT evidence of diverticulitis or abscess. IMPRESSION: Negative CT abdomen and pelvis with intravenous contrast. Please note that all CT scans at this facility use dose modulation, iterative reconstruction, and/or weight-based dosing when appropriate to reduce radiation dose to as low as reasonably achievable. Dictated by Chance Quinn MD @ 11/08/2022 5:15:18 PM (Electronically Signed)
--- NOTE | 2022-11-08 16:09 | ED_ITS ---
HPI - Abdominal Pain General Chief Complaint: Constipation Stated Complaint: No bm in 2 weeks, vomiting anytime she eats Time Seen by Provider: 11/08/22 15:51 History of Present Illness HPI narrative: Patient is a 51-year-old woman who presents with increased abdominal pain and no bowel movement for last 1 week. Patient is passing flatus without difficulty. She states that this has been very limited however. Patient has history of lung cancer with cerebral metastasis as well as distant history of colitis. She is currently on Keytruda for the lung cancer. She has had no blood in her stool no nausea no vomiting. She has not been eating or drinking well. She describes no fever chills. She has no rashes no stiff neck no headache no change in her vision or hearing. Related Data Home Medications Medication Instructions Recorded Confirmed melatonin 10 mg capsule 10 mg PO QHS 07/24/22 10/16/22 famotidine 20 mg tablet 20 mg PO DAILY PRN 10/16/22 10/16/22 Previous Rx's Medication Instructions Recorded ondansetron 4 mg disintegrating 4 mg PO Q6H PRN nausea and 06/19/22 tablet vomiting #30 tabs prochlorperazine maleate 10 mg 10 mg PO QID PRN nausea and 09/30/22 tablet vomiting #45 tabs potassium chloride 20 mEq 20 meq PO QDAY #60 tabs 10/22/22 tablet,extended release polyethylene glycol 3350 17 17 g PO DAILY Constipation #119 11/08/22 gram/dose oral powder (Miralax) grams Allergies Allergy/AdvReac Type Severity Reaction Status Date / Time amoxicillin Allergy Severe hives Verified 11/08/22 16:50 Review of Systems Status of ROS Reports: 10 or more systems reviewed and unremarkable except as noted in History and below [facility] Medical History Acute renal failure ?N17.9 - Acute kidney failure, unspecified (ICD-10) Brain metastases ?C79.31 - Secondary malignant neoplasm of brain (ICD-10) Colitis ?K52.9 - Noninfective gastroenteritis and colitis, unspecified (ICD-10) Constipation ?K59.00 - Constipation, unspecified (ICD-10) Hypertension ?I10 - Essential (primary) hypertension (ICD-10) Hypokalemia ?E87.6 - Hypokalemia (ICD-10) Hyponatremia ?E87.1 - Hypo-osmolality and hyponatremia (ICD-10) Insomnia ?G47.00 - Insomnia, unspecified (ICD-10) Lung cancer ?C34.90 - Malignant neoplasm of unspecified part of unspecified bronchus or lung (ICD-10) Metastasis to lymph nodes ?C77.9 - Secondary and unspecified malignant neoplasm of lymph node, unspecified (ICD-10) 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 - Secondary malignant neoplasm of other specified sites (ICD-10) Non-small cell lung cancer ?C34.90 - Malignant neoplasm of unspecified part of unspecified bronchus or lung (ICD-10) Normocytic anemia ?D64.9 - Anemia, unspecified (ICD-10) Orthostatic hypotension ?I95.1 - Orthostatic hypotension (ICD-10) Sepsis ?A41.9 - Sepsis, unspecified organism (ICD-10) Tobacco use ?Z72.0 - Tobacco use (ICD-10) Surgical History History of section ?Z98.891 - History of uterine scar from previous surgery (ICD-10) S/P radiation therapy ?Z92.3 - Personal history of irradiation (ICD-10) Family History Father Melanoma Colon cancer Social History Narrative: Renea lives in [place] with her daughter, Mariam, who is also healthcare power of erisa attorney. Code status is DNR. She smokes a half pack of cigarettes a day. She does not drink alcohol. She does not use recreational drugs. She works at [employer] Smoking Status: Heavy tobacco smoker What tobacco products do you use: cigarettes Smoking packs per day: 2 Smoking cigarettes per day: 40.0 Years smoked: 20 Smoking pack-years: 40.00 Do you use any of these nicotine containing products: None Second hand tobacco smoke exposure: No How often do you have a drink containing alcohol: never AUDIT-C Alcohol total score: 0 Non-prescribed substance use: denies use Caffeine: No Little interest or pleasure in doing things: not at all Feeling down, depressed, or hopeless: not at all service: No Exam Narrative: Exam Narrative: EXAM GENERAL: Patient appears comfortable and well. Older than her stated age THYROID: no thyroid nodules or thyromegaly. LYMPH: No supraclavicular or cervical lymphadenopathy. SKIN: Visible skin seen during exam normal or with benign process only. EXT: No dependent lower extremity pedal edema. HEART: Regular rate and rhythm with no murmurs, rubs, or gallops. LUNGS: Clear to auscultation bilaterally with no crackles or wheezes. ABD: Soft, non tender, non distended. Hypoactive but present bowel sounds no rebound masses or guarding. PSYCH: Good eye contact, speech is not pressured. Neurologic cranial nerves 2-12 grossly intact no focal defects. I Const: Vital Signs, click to edit/add: Vital Signs - 24 hr 11/08/22 15:56 11/08/22 16:58 11/08/22 17:00 Temperature 97.2 F L Pulse Rate 107 H 104 H Pulse Rate [Pulse Oximeter] 100 Respiratory Rate 15 Blood Pressure Blood Pressure [Ri ght Upper Arm] 129/81 Pulse Oximetry 98 98 99 Oxygen Delivery Me thod Room Air Room Air 11/08/22 17:02 Temperature Pulse Rate 101 H Pulse Rate [Pulse Oximeter] Respiratory Rate Blood Pressure 137/86 Blood Pressure [Ri ght Upper Arm] Pulse Oximetry 99 Oxygen Delivery Me thod Course Course Hospital Course: Patient seen examined. Previous records reviewed. CT of the abdomen pelvis ordered with IV contrast. CBC comprehensive metabolic panel amylase ordered. Patient given 1 L of normal saline IV. Vital Signs Vital signs: Initial Vital Signs Temperature 97.2 F L 11/08/22 15:56 Temperature Source Temporal Artery Scan 11/08/22 15:56 Pulse Rate 100 11/08/22 15:56 Respiratory Rate 15 11/08/22 15:56 Blood Pressure 129/81 11/08/22 15:56 Blood Pressure Mean 97 11/08/22 15:56 Pulse Oximetry 98 11/08/22 15:56 Oxygen Delivery Method Room Air 11/08/22 15:56 Vital Signs Temperature 97.2 F L 11/08/22 15:56 Pulse Rate 100 11/08/22 15:56 Respiratory Rate 15 11/08/22 15:56 Blood Pressure 129/81 11/08/22 15:56 Pulse Oximetry 98 11/08/22 15:56 Oxygen Delivery Method Room Air 11/08/22 15:56 Temperature 97.2 F L 11/08/22 15:56 Pulse Rate 101 H 11/08/22 17:02 Respiratory Rate 15 11/08/22 15:56 Blood Pressure 137/86 11/08/22 17:02 Pulse Oximetry 99 11/08/22 17:02 Oxygen Delivery Method Room Air 11/08/22 16:58 MDM - Abdominal Pain MDM Narrative Medical decision making narrative: Patient is a 51-year-old woman who unfortunately is going through treatment for lung cancer with metastases. She comes in today with no stool output for last 7 days. Patient has all unremarkable exam lab workup is unremarkable with the exception of mildly widened anion gap. Her CT of the abdomen pelvis is nonacute. At this time we are starting her on MiraLax 17 g daily. She does see her oncologist tomorrow and I did encourage her to keep that appointment. She will otherwise keep her current medications and follow-up as needed. Lab Data Labs: Lab Results 11/08/22 11/08/22 Range/Units 13:57 16:30 WBC 5.03 (4.50-11.00) K/uL RBC 3.15 L (4.00-5.20) m/uL Hgb 9.8 L (12.0-16.0) gm/dL Hct 29.2 L (33.0-51.0) % MCV 93 (80-100) fL MCH 31 (26-34) pg MCHC 34 (32-36) gm/dL RDW Coeff of Bryon 13.5 (11.5-15.5) % Plt Count 238 (140-440) K/uL Neut % (Auto) 56.0 (42.0-72.0) % Lymph % (Auto) 29.6 (20-44) % [place] % (Auto) 7.4 (0.0-11.0) % Eos % (Auto) 5.8 (0.0-7.0) % Baso % (Auto) 1.0 (0.0-3.0) % Neut # (Auto) 2.82 (1.7-7.0) K/uL Lymph # (Auto) 1.49 (0.90-2.90) K/uL [place] # (Auto) 0.40 (0.00-0.90) K/UL Eos # (Auto) 0.29 (0.00-0.50) K/uL Baso # (Auto) 0.05 (0.00-0.30) K/uL Sodium 136 (135-149) mmol/L Potassium 3.5 L (3.6-5.1) mmol/L Chloride 105 (96-114) mmol/L Carbon Dioxide 15 L (20-32) mmol/L BUN 11 (5-24) mg/dL Creatinine 0.8 (0.5-1.5) mg/dL Estimated Creat Clear 76.54 Estimated GFR 90 ml/min Glucose 70 (60-115) mg/dL Lactate 0.7 (0.5-1.9) mmol/L Calcium 10.1 (8.4-10.6) mg/dL Total Bilirubin 0.7 (0.1-1.5) mg/dL AST 47 H (12-35) U/L ALT 29 (4-35) U/L Alkaline Phosphatase 48 (40-150) U/L Total Protein 6.2 (6.0-8.3) g/dL Albumin 3.7 (3.3-5.0) g/dL Amylase 36 (18-89) U/L Discharge Plan Discharge Clinical Impression: Constipation Patient Disposition: Home, Self-Care Condition: Stable Instructions: Constipation (ED) Additional Instructions: MiraLax 17 g daily. Continue current medications Drink water per thirst Follow-up with oncology as scheduled. Activity Level: No Restrictions Discharge Diet: Regular Prescriptions: New polyethylene glycol 3350 [Miralax] 17 gram/dose powder 17 g PO DAILY Qty: 119 0RF No Action melatonin 10 mg capsule 10 mg PO QHS famotidine 20 mg tablet 20 mg PO DAILY PRN ondansetron 4 mg tablet,disintegrating 4 mg PO Q6H PRN (Reason: nausea and vomiting) Qty: 30 0RF Rx Instructions: Take for nausea or vomiting of prochlorperazine (compazine) ineffective. prochlorperazine maleate 10 mg tablet 10 mg PO QID MDD 4 PRN (Reason: nausea and vomiting) Qty: 45 1RF potassium chloride 20 mEq tablet extended release 20 meq PO QDAY Qty: 60 1RF Follow Up/Referrals: Daysi Mendoza PA [Primary Care Provider] - Stand Alone Forms: [employer] Info Instructions
[2022-11-08 16:38] LABS: Lactate* 0.7 mmol/L (0.5-1.9)
[2022-11-08 16:39] LABS: Basophils Absolute Auto 0.05 K/uL (0.00-0.30); Eosinophils Absolute Auto 0.29 K/uL (0.00-0.50); Eosinophils Percent Auto 5.8 % (0.0-7.0); Hematocrit 29.2 % (33.0-51.0); Hemoglobin* 9.8 gm/dL (12.0-16.0); Immature Granulocytes Abs Auto 0.01 K/uL (0.00-0.30); Immature Granulocytes Pct Auto 0.2 %; Lymphocytes Absolute Auto 1.49 K/uL (0.90-2.90); Lymphocytes Percent Auto 29.6 % (20-44); Mean Corpuscular HGB Conc 34 gm/dL (32-36); Mean Corpuscular Hemoglobin 31 pg (26-34); Mean Corpuscular Volume 93 fL (80-100); Monocytes Percent Auto 7.4 % (0.0-11.0); Neutrophils Absolute Auto 2.82 K/uL (1.7-7.0); Platelet Count* 238 K/uL (140-440); RDW Coefficient of Variation % 13.5 % (11.5-15.5); Red Blood Count 3.15 m/uL (4.00-5.20); White Blood Count* 5.03 K/uL (4.50-11.00)
[2022-11-08 16:40] LABS: Slide Review Reflex No
[2022-11-08] MEDS: 0.9 % SODIUM CHLORIDE 1000 ml 1,000 ML IV (16:43)
[2022-11-08 16:54] LABS: Albumin* 3.7 g/dL (3.3-5.0); Chloride* 105 mmol/L (96-114); Potassium* 3.5 mmol/L (3.6-5.1); Sodium* 136 mmol/L (135-149)
[2022-11-08 16:56] LABS: Amylase* 36 U/L (18-89); Carbon Dioxide* 15 mmol/L (20-32); Creatinine* 0.8 mg/dL (0.5-1.5); Est. Creatinine Clearance* 76.54; Estimated Glomerular Filt Rate 90 ml/min
[2022-11-08 16:57] LABS: Alanine Aminotransferase* 29 U/L (4-35); Alkaline Phosphatase* 48 U/L (40-150); Aspartate Amino Transferase* 47 U/L (12-35); Bilirubin Total* 0.7 mg/dL (0.1-1.5); Blood Urea Nitrogen* 11 mg/dL (5-24); Calcium* 10.1 mg/dL (8.4-10.6); Glucose* 70 mg/dL (60-115); Total Protein* 6.2 g/dL (6.0-8.3)
[2022-11-08] MEDS: ONDANSETRON 2 MG/ML inj 4 MG IVP (17:58)
== END 2022-11-08 18:09 | disposition home or self-care (01) ==
PROVIDERS: Emergency Provider Internal Medicine; PCP Physician Assistant
DX: K59.00 Constipation, unspecified (principal)
CPT/HCPCS: 36415; 74177; 80053; 82150; 83605; 85025; 96361; 96374; 99283; 99284; 99285; J2405; J7030; Q9967

== ENCOUNTER 2022-11-12 10:22 | Emergency (ER) | payer BC, SELFPAY ==
[2022-11-12] VITALS (36 sets, daily range): BP systolic 79–140; BP diastolic 54–97; PULSE 102–116; RESP 20; TEMP 36.3; O2SAT 91–100; BMI 28.3
--- NOTE | 2022-11-12 10:44 | ED.GENADULT ---
HPI - General Adult General Time Seen by Provider: 10:44 Date Seen: 11/12/22 Chief complaint: Dizziness/Vertigo Stated complaint: blackouts, dizziness Time Seen by Provider: 11/12/22 10:44 Source: patient and RN notes reviewed Mode of arrival: ambulatory Limitations: no limitations History of Present Illness HPI narrative: Patient is a 51-year-old female coming in with presyncopal symptoms. She was sitting at her desk today and felt like she was going to pass out. 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 She has completed radiation therapy, is on palliative Keytruda. She is due for her next dose on November 16. She denies shortness of breath, denies any chest pain. She states she continues to vomit multiple times a day, does have anti nausea medicines at home but they are not working. States she has not had a bowel movement for days now, was into the ER on Wednesday for this. Had a normal CT abdomen pelvis. This was done with IV contrast. Denies any abdominal pain. She was found to be significantly hypotensive with significant orthostatic changes done by nursing staff on arrival. Related Data Home Medications Medication Instructions Recorded Confirmed melatonin 10 mg capsule 10 mg PO QHS 07/24/22 11/12/22 famotidine 20 mg tablet 20 mg PO DAILY PRN 10/16/22 11/12/22 Previous Rx's Medication Instructions Recorded ondansetron 4 mg disintegrating 4 mg PO Q6H PRN nausea and 06/19/22 tablet vomiting #30 tabs prochlorperazine maleate 10 mg 10 mg PO QID PRN nausea and 09/30/22 tablet vomiting #45 tabs potassium chloride 20 mEq 20 meq PO QDAY #60 tabs 10/22/22 tablet,extended release polyethylene glycol 3350 17 17 g PO DAILY Constipation #119 11/08/22 gram/dose oral powder (Miralax) grams Allergies Allergy/AdvReac Type Severity Reaction Status Date / Time amoxicillin Allergy Severe hives Verified 11/12/22 12:30 Review of Systems Status of ROS: Reports: 10 or more systems reviewed and unremarkable except as noted in History and below [facility] Medical History Constipation ?K59.00 - Constipation, unspecified (ICD-10) Lung cancer ?C34.90 - Malignant neoplasm of unspecified part of unspecified bronchus or lung (ICD-10) Orthostatic hypotension ?I95.1 - Orthostatic hypotension (ICD-10) Hyponatremia ?E87.1 - Hypo-osmolality and hyponatremia (ICD-10) 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 - Secondary malignant neoplasm of other specified sites (ICD-10) Metastasis to lymph nodes ?C77.9 - Secondary and unspecified malignant neoplasm of lymph node, unspecified (ICD-10) Normocytic anemia ?D64.9 - Anemia, unspecified (ICD-10) Sepsis ?A41.9 - Sepsis, unspecified organism (ICD-10) Colitis ?K52.9 - Noninfective gastroenteritis and colitis, unspecified (ICD-10) Acute renal failure ?N17.9 - Acute kidney failure, unspecified (ICD-10) Tobacco use ?Z72.0 - Tobacco use (ICD-10) Hypokalemia ?E87.6 - Hypokalemia (ICD-10) Insomnia ?G47.00 - Insomnia, unspecified (ICD-10) Brain metastases ?C79.31 - Secondary malignant neoplasm of brain (ICD-10) Non-small cell lung cancer ?C34.90 - Malignant neoplasm of unspecified part of unspecified bronchus or lung (ICD-10) Hypertension ?I10 - Essential (primary) hypertension (ICD-10) Surgical History History of section ?Z98.891 - History of uterine scar from previous surgery (ICD-10) S/P radiation therapy ?Z92.3 - Personal history of irradiation (ICD-10) Family History Father Melanoma Colon cancer Social History Narrative: Clara lives in [place] with her daughter, Mariam, who is also healthcare power of staff attorney. Code status is DNR. She smokes a half pack of cigarettes a day. She does not drink alcohol. She does not use recreational drugs. She works at [employer] Smoking Status: Heavy tobacco smoker What tobacco products do you use: cigarettes Smoking packs per day: 2 Smoking cigarettes per day: 40.0 Years smoked: 20 Smoking pack-years: 40.00 Do you use any of these nicotine containing products: None Second hand tobacco smoke exposure: No How often do you have a drink containing alcohol: never AUDIT-C Alcohol total score: 0 Non-prescribed substance use: denies use Caffeine: No Little interest or pleasure in doing things: not at all Feeling down, depressed, or hopeless: not at all service: No Exam Const: Vital Signs, click to edit/add: Vital Signs - 24 hr 11/12/22 10:29 11/12/22 10:48 11/12/22 10:50 Temperature 97.4 F L Pulse Rate 108 H Pulse Rate [Pulse Oximeter] 112 H Respiratory Rate 20 Blood Pressure Blood Pressure [Ri ght Upper Arm] 79/54 L Pulse Oximetry 99 98 99 Oxygen Delivery Me thod Room Air 11/12/22 10:56 11/12/22 11:08 11/12/22 11:20 Temperature Pulse Rate 110 H 105 H 102 H Pulse Rate [Pulse Oximeter] Respiratory Rate Blood Pressure 80/63 L Blood Pressure [Ri ght Upper Arm] Pulse Oximetry 99 91 97 Oxygen Delivery Me thod 11/12/22 11:44 11/12/22 11:45 11/12/22 11:46 Temperature Pulse Rate 113 H 112 H 112 H Pulse Rate [Pulse Oximeter] Respiratory Rate Blood Pressure 127/79 115/79 Blood Pressure [Ri ght Upper Arm] Pulse Oximetry 99 100 97 Oxygen Delivery Me thod 11/12/22 11:47 11/12/22 12:00 11/12/22 12:02 Temperature Pulse Rate 114 H 106 H 103 H Pulse Rate [Pulse Oximeter] Respiratory Rate Blood Pressure 89/68 L 131/84 Blood Pressure [Ri ght Upper Arm] Pulse Oximetry 93 99 99 Oxygen Delivery Me thod 11/12/22 12:15 11/12/22 12:16 11/12/22 12:37 Temperature Pulse Rate 106 H 106 H 116 H Pulse Rate [Pulse Oximeter] Respiratory Rate Blood Pressure 129/88 Blood Pressure [Ri ght Upper Arm] Pulse Oximetry 99 99 99 Oxygen Delivery Me thod 11/12/22 12:45 11/12/22 12:49 11/12/22 13:00 Temperature Pulse Rate 110 H 109 H 109 H Pulse Rate [Pulse Oximeter] Respiratory Rate Blood Pressure Blood Pressure [Ri ght Upper Arm] Pulse Oximetry 100 100 100 Oxygen Delivery Va thod 11/12/22 13:01 11/12/22 13:02 11/12/22 13:15 Temperature Pulse Rate 108 H 108 H 106 H Pulse Rate [Pulse Oximeter] Respiratory Rate Blood Pressure 123/80 Blood Pressure [Ri ght Upper Arm] Pulse Oximetry 99 99 [facility] 13:30 11/12/22 13:31 11/12/22 13:45 Temperature Pulse Rate 109 H 108 H 103 H Pulse Rate [Pulse Oximeter] Respiratory Rate Blood Pressure 119/86 Blood Pressure [Ri ght Upper Arm] Pulse Oximetry 99 100 [facility] 14:00 11/12/22 14:01 11/12/22 14:15 Temperature Pulse Rate 102 H 104 H 106 H Pulse Rate [Pulse Oximeter] Respiratory Rate Blood Pressure 131/86 Blood Pressure [Ri ght Upper Arm] Pulse Oximetry 96 99 98 [facility] 14:30 11/12/22 14:31 11/12/22 14:45 Temperature Pulse Rate 105 H 104 H 111 H Pulse Rate [Pulse Oximeter] Respiratory Rate Blood Pressure 133/90 H Blood Pressure [Ri ght Upper Arm] Pulse Oximetry 98 99 99 [facility] 15:00 11/12/22 15:01 11/12/22 15:02 Temperature Pulse Rate 115 H 116 H Pulse Rate [Pulse Oximeter] Respiratory Rate Blood Pressure 140/97 H Blood Pressure [Ri ght Upper Arm] Pulse Oximetry 98 98 [facility] 15:15 11/12/22 15:30 11/12/22 15:31 Temperature Pulse Rate 112 H 106 H 107 H Pulse Rate [Pulse Oximeter] Respiratory Rate Blood Pressure 129/89 Blood Pressure [Ri ght Upper Arm] Pulse Oximetry 100 100 99 Oxygen Delivery Me od Documenting provider has reviewed patient's vital signs: yes Common normals: no apparent distress (Seen while lying in the ER bed and comfortable), average body habitus, oriented x3, no limitations and alert General appearance: cooperative, comfortable, well kempt, well developed and frail appearing Nutritional appearance: thin HENMT: Common normals: normocephalic, head/scalp atraumatic, hearing grossly normal bilaterally, external ears normal, external nose normal and moist oral mucous membranes Head and scalp: normocephalic and atraumatic Nose: external nose normal External ear: external ears normal Mouth: lip normal Eye: Common normals: PERRL, EOMs intact bilaterally, conjunctivae normal and no scleral icterus Conjunctiva: conjunctiva(e) normal Pupil: PERRL Neck & C-Spine: Common normals: full ROM, no lymphadenopathy, supple, no meningeal signs, no JVD and thyroid normal Thyroid: thyroid normal Chest: Common normals: inspection of chest normal and palpation of chest normal Resp: Common normals: normal respiratory effort, no retractions, no use of accessory muscles and clear to auscultation bilaterally Auscultation: clear to auscultation bilaterally Cardio: Common normals: no JVD, regular rhythm, S1 normal heart sound, S2 normal heart sound, no gallops, no clicks and no murmurs Rate: tachycardic Rhythm: regular rhythm Heart sounds: S1 normal and S2 normal GI: Common normals: Normal to inspection, nondistended, normoactive bowel sounds present, soft to palpation, non-tender, no hepatosplenomegaly and no masses Palpation: soft and no hepatosplenomegaly Extremity: Common normals: normal to inspection, no calf tenderness and no pedal edema Neuro: Common normals: oriented x3 Sensorium/orientation: alert Meningeal signs: no meningeal signs Psych: Appearance: well kempt Course Course Hospital Course: This is afebrile hypotensive patient with underlying adenocarcinoma primary lung that is metastatic on a palliative Keytruda with ongoing nausea vomiting. Her sister's concerned as she states this is the 3rd time these symptoms of happen. Reviewed with her that it certainly can be nutritional in the fact that she is not getting adequate fluid or food intake. We will have to see if there is any electrolyte imbalances. Patient did subsequently complain that she generally feels her legs are weak right now. She is having no pain anywhere. Will have her on cardiac monitoring, pulse oximetry. I do not think she needs any emergent advanced imaging with CT. She just had a normal abdominal imaging within a week of her abdomen. We will do flat and upright of her abdomen to ensure no obstructive changes, also obtain a chest x-ray. We will obtain a full complement of labs. I am going to initiate a L of IV fluids over 1 hour. Re-evaluate her status at that point. Reevaluation(s) Reevaluation #1: Patient is just back from imaging. She is feeling better. She was able to stand and transfer and felt like she was not as symptomatic. Will have nursing staff attempt a standing blood pressure at this time to see how she is doing after a L of IV fluids. Lying systolic was 115, standing patient went 89/68 but states she is feeling better. I still think she is showing relative orthostatic changes but I am glad she clinically feels better. I will initiate a L of LR. Time: 11:44 Reevaluation #2: Have reviewed with patient as well as her sister and her brother on the phone that the chest CT is showing 1 smaller nodular area but the 1 on the right middle lobe is slightly larger. There is no pulmonary embolus. She has only had 1 dose of Keytruda. Reviewed with them that you cannot decide management as far is increasing size of cancer based on 1 treatment. She is feeling better, has to go to the bathroom. She would like to go home. I am not finding any evidence of any infection or any definitive problems outside of the orthostatic hypotension which I believe is nutritionally mediated by poor oral intake and some nausea vomiting. There is no evidence of obstruction. I do wonder if she might benefit from some outpatient IV fluids through [facility]. I can try to initiate that but cannot promise that that will happen. She would like to go home, my test will be if she can not ambulate safely and comfortably to the bathroom. Time: 14:47 Reevaluation #3: ED staff reports that the patient did ambulate to and from the bathroom. At the end of ambulation felt a little weak but there was no concerns of fall. Patient felt safe and was requesting to go home. I do think this is reasonable if she is willing to return with further issues. Time: 15:39 Consultations Consultation #1: Attempted to call Gail in [facility], left message for her to call back. [phone] Spoke to Gail about this patient. Will try to get this patient to come in for fluids as needed. Time: 15:36 Vital Signs Vital signs: Initial Vital Signs Temperature 97.4 F L 05/04/23 10:29 Temperature Source Temporal Artery Scan 11/12/22 10:29 Pulse Rate 112 H 11/12/22 10:29 Respiratory Rate 11/12/22 10:29 Blood Pressure 79/54 L 11/12/22 10:29 Blood Pressure Mean 62 L 11/12/22 10:29 Blood Pressure Position Sitting 11/12/22 10:29 Pulse Oximetry 99 11/12/22 10:29 Oxygen Delivery Method Room Air 11/12/22 10:29 Vital Signs Temperature 97.4 F L 11/12/22 10:29 Pulse Rate 112 H 11/12/22 10:29 Respiratory Rate 20 11/12/22 10:29 Blood Pressure 79/54 L 11/12/22 10:29 Pulse Oximetry 99 11/12/22 10:29 Oxygen Delivery Method Room Air 11/12/22 10:29 Temperature 97.4 F L 11/12/22 10:29 Pulse Rate 107 H 11/12/22 15:31 Respiratory Rate 20 11/12/22 10:29 Blood Pressure 129/89 11/12/22 15:31 Pulse Oximetry 99 11/12/22 15:31 Oxygen Delivery Method Room Air 11/12/22 10:29 Medical Decision Making Lab Data Lab results reviewed: Yes I reviewed the patient's lab results Labs: Lab Results 11/12/22 11/12/22 Range/Units 10:48 11:19 WBC 6.16 (4.50-11.00) K/uL RBC 3.28 L (4.00-5.20) m/uL Hgb 10.1 L (12.0-16.0) gm/dL Hct 30.0 L (33.0-51.0) % MCV 92 (80-100) fL MCH 31 (26-34) pg MCHC 34 (32-36) gm/dL RDW Coeff of Bryon 13.6 (11.5-15.5) % Plt Count 198 (140-440) K/uL Neut % (Auto) 59.7 (42.0-72.0) % Lymph % (Auto) 25.5 (20-44) % [place] % (Auto) 9.4 (0.0-11.0) % Eos % (Auto) 4.1 (0.0-7.0) % Baso % (Auto) 1.1 (0.0-3.0) % Neut # (Auto) 3.68 (1.7-7.0) K/uL Lymph # (Auto) 1.57 (0.90-2.90) K/uL Valley # (Auto) 0.60 (0.00-0.90) K/UL Eos # (Auto) 0.25 (0.00-0.50) K/uL Baso # (Auto) 0.07 (0.00-0.30) K/uL D-Dimer Quant (PE/DVT) 0.96 H (0.00-0.50) ug/ml Sodium 136 (135-149) mmol/L Potassium 3.4 L (3.6-5.1) mmol/L Chloride 104 (96-114) mmol/L Carbon Dioxide 19 L (20-32) mmol/L BUN 12 (5-24) mg/dL Creatinine 1.3 (0.5-1.5) mg/dL Estimated Creat Clear 47.10 Estimated GFR 50 ml/min Glucose 79 (60-115) mg/dL Lactate 1.3 (0.5-1.9) mmol/L Calcium 9.9 (8.4-10.6) mg/dL Total Bilirubin 0.6 (0.1-1.5) mg/dL AST 36 H (12-35) U/L ALT 26 (4-35) U/L Alkaline Phosphatase 50 (40-150) U/L C-Reactive Protein 3.1 H (0.5-1.0) mg/dL Total Protein 6.3 (6.0-8.3) g/dL Albumin 3.9 (3.3-5.0) g/dL Urine Color Yellow (Yellow) Urine Appearance Clear (Clear) Urine pH 5.5 (5.0-8.5) Ur Specific [place] 1.010 (1.000-1.030) Urine Protein Negative (Negative) Urine Glucose (UA) Negative (Negative) Urine Ketones 3+ A (Negative) Urine Blood Trace-lysed A (Negative) Urine Nitrite Negative (Negative) Urine Bilirubin 1+ A (Negative) Urine Urobilinogen 0.2 (0.2-1.0) Ur Leukocyte Esterase 1+ A (Negative) Urine RBC 0-2 (0-2) Urine WBC 2-5 (0-5) Ur Squamous Epith Cells Few (None-Few) Urine Bacteria Moderate A (None) Imaging Data Abdominal x-ray: Attestation: I have reviewed the pertinent imaging results. Radiologist's impression: Patient: CLARA GUDINO Facility:?[facility] Patient ID:?[id number] Site Patient ID:?[id number]. Site :?[id number] Study:?XRay Abdomen/Pelvis UPRIGHT & SUPINE-11/12/2022 11:45:53 AM Ordering Physician:?Vickie Balderas Final Report: Indication: Constipation Technique: Upright and supine views the abdomen were acquired Comparison: No prior plain films the abdomen available for comparison Findings: Normal osseous structures. No pathologic calcifications. No unusual fecal retention pattern. No evidence of ileus, obstruction or perforation. Impression: Unremarkable examination Dictated by Jayro Sun MD @ 11/12/2022 12:04:03 PM (Electronic Signature) Chest x-ray: Attestation: I have reviewed the pertinent imaging results. Radiologist's impression: Patient: CLARA GUDINO Facility:?[facility] Patient ID:?[id number] Site Patient ID:?[id number]. Site :?[id number] Study:?XRay Chest AP & LAT-11/12/2022 11:45:32 AM Ordering Physician:Kirsten Balderas Final Report: INDICATION: Weakness. Lung carcinoma. COMPARISON: October 08, 2022 TECHNIQUE: PA and lateral views of the chest were acquired FINDINGS: TUBES AND LINES: None. HEART AND MEDIASTINUM: The heart size is normal. The mediastinal contour appears normal for patient age. LUNGS AND PLEURAL SPACES: The lungs appear normal.The pleural spaces are unremarkable. OSSEOUS STRUCTURES: Age-appropriate appearance. No acute focal finding. IMPRESSION: No evidence of active pulmonary disease. No plain film findings of lung malignancy or other acute finding by plain film. Dictated by Jayro Sun MD @ 11/12/2022 12:01:31 PM (Electronic Signature) ECG Data Attestation: I personally reviewed and interpreted this ECG as follows: (Atrial flutter with 2-1 conduction, 112 beats per minute. Flipped T-waves inferiorly and laterally consistent with possible ischemia.) Critical Care Time Critical Care Time Critical Care Time: No Discharge Plan Discharge Clinical Impression: Acute dehydration, Orthostatic hypotension Patient Disposition: Home, Self-Care Condition: Improved Instructions: Dehydration (ED), Hypotension (ED) Additional Instructions: Need to try to take frequent sips of fluids every 5-10 minutes while awake to stay hydrated. You need to discuss nausea management with the [facility]. I will tried touch base with them later to see if having some IV fluids done weekly or twice weekly might be an option. In the meantime, if you have return of your symptoms, have any new or concerning issues, please seek re-evaluation. Activity Level: Activity as Tolerated Discharge Diet: Regular Prescriptions: No Action melatonin 10 mg capsule 10 mg PO QHS famotidine 20 mg tablet 20 mg PO DAILY PRN polyethylene glycol 3350 [Miralax] 17 gram/dose powder 17 g PO DAILY Qty: 119 0RF ondansetron 4 mg tablet,disintegrating 4 mg PO Q6H PRN (Reason: nausea and vomiting) Qty: 30 0RF Rx Instructions: Take for nausea or vomiting of prochlorperazine (compazine) ineffective. prochlorperazine maleate 10 mg tablet 10 mg PO QID MDD 4 PRN (Reason: nausea and vomiting) Qty: 45 1RF potassium chloride 20 mEq tablet extended release 20 meq PO QDAY Qty: 60 1RF Hold Instructions: out of medication. Follow Up/Referrals: Daysi Mendoza PA [Primary Care Provider] - Stand Alone Forms: [employer] Tracking Info Instructions
[2022-11-12] MEDS: 0.9 % SODIUM CHLORIDE 1000 ml 1,000 ML IV (10:56)
--- NOTE | 2022-11-12 11:01 | CRLHL7_ITS ---
For Patients: As a result of the Century Cures Act, medical imaging exams and procedure reports are released immediately into your electronic medical record. You may view this report before your referring provider. If you have questions, please contact your health care provider. INDICATION: Weakness. Lung carcinoma. COMPARISON: October 08, 2022 TECHNIQUE: PA and lateral views of the chest were acquired FINDINGS: TUBES AND LINES: None. HEART AND MEDIASTINUM: The heart size is normal. The mediastinal contour appears normal for patient age. LUNGS AND PLEURAL SPACES: The lungs appear normal.The pleural spaces are unremarkable. OSSEOUS STRUCTURES: Age-appropriate appearance. No acute focal finding. IMPRESSION: No evidence of active pulmonary disease. No plain film findings of lung malignancy or other acute finding by plain film. Dictated by Jayro Sun MD @ 11/12/2022 12:01:31 PM (Electronically Signed)
--- NOTE | 2022-11-12 11:01 | CRLHL7_ITS ---
For Patients: As a result of the Century Cures Act, medical imaging exams and procedure reports are released immediately into your electronic medical record. You may view this report before your referring provider. If you have questions, please contact your health care provider. Indication: Constipation Technique: Upright and supine views the abdomen were acquired Comparison: No prior plain films the abdomen available for comparison Findings: Normal osseous structures. No pathologic calcifications. No unusual fecal retention pattern. No evidence of ileus, obstruction or perforation. Impression: Unremarkable examination Dictated by Jayro Sun MD @ 11/12/2022 12:04:03 PM (Electronically Signed)
[2022-11-12 11:26] LABS: Lactate* 1.3 mmol/L (0.5-1.9)
[2022-11-12 11:28] LABS: Basophils Absolute Auto 0.07 K/uL (0.00-0.30); Basophils Percent Auto 1.1 % (0.0-3.0); Eosinophils Absolute Auto 0.25 K/uL (0.00-0.50); Eosinophils Percent Auto 4.1 % (0.0-7.0); Hemoglobin* 10.1 gm/dL (12.0-16.0); Immature Granulocytes Abs Auto 0.01 K/uL (0.00-0.30); Immature Granulocytes Pct Auto 0.2 %; Lymphocytes Absolute Auto 1.57 K/uL (0.90-2.90); Lymphocytes Percent Auto 25.5 % (20-44); Mean Corpuscular HGB Conc 34 gm/dL (32-36); Mean Corpuscular Hemoglobin 31 pg (26-34); Mean Corpuscular Volume 92 fL (80-100); Monocytes Percent Auto 9.4 % (0.0-11.0); Neutrophils Absolute Auto 3.68 K/uL (1.7-7.0); Neutrophils Percent Auto 59.7 % (42.0-72.0); Platelet Count* 198 K/uL (140-440); RDW Coefficient of Variation % 13.6 % (11.5-15.5); Red Blood Count 3.28 m/uL (4.00-5.20); White Blood Count* 6.16 K/uL (4.50-11.00)
[2022-11-12 11:43] LABS: Slide Review Reflex No
[2022-11-12 11:47] LABS: Albumin* 3.9 g/dL (3.3-5.0); Chloride* 104 mmol/L (96-114); Sodium* 136 mmol/L (135-149)
[2022-11-12 11:48] LABS: Potassium* 3.4 mmol/L (3.6-5.1)
[2022-11-12 11:49] LABS: D Dimer Quantitative* 0.96 ug/ml (0.00-0.50)
[2022-11-12 11:50] LABS: Alanine Aminotransferase* 26 U/L (4-35); Alkaline Phosphatase* 50 U/L (40-150); Aspartate Amino Transferase* 36 U/L (12-35); Bilirubin Total* 0.6 mg/dL (0.1-1.5); Blood Urea Nitrogen* 12 mg/dL (5-24); Carbon Dioxide* 19 mmol/L (20-32); Creatinine* 1.3 mg/dL (0.5-1.5); Estimated Glomerular Filt Rate 50 ml/min; Total Protein* 6.3 g/dL (6.0-8.3)
[2022-11-12] MEDS: LACTATED RINGERS 1000 ML 1,000 ML IV (11:50)
[2022-11-12 11:51] LABS: Calcium* 9.9 mg/dL (8.4-10.6); Glucose* 79 mg/dL (60-115)
[2022-11-12 11:53] LABS: C Reactive Protein* 3.1 mg/dL (0.5-1.0)
--- NOTE | 2022-11-12 12:13 | CRLHL7_ITS ---
For Patients: As a result of the Century Cures Act, medical imaging exams and procedure reports are released immediately into your electronic medical record. You may view this report before your referring provider. If you have questions, please contact your health care provider. INDICATION: Presyncope. Increased D-dimer. Lung carcinoma COMPARISON: The most recent study of September 14, 2022. TECHNIQUE: : CT examination of the chest was performed with the uneventful intravenous administration of 95 cc of Isovue 370 while thin axial sections were obtained from above the apices of the lungs to the lung bases. Please note that all CT scans at this facility use dose modulation, iterative reconstruction, and/or weight-based dosing when appropriate to reduce radiation dose to as low as reasonably achievable. FINDINGS: : HEART and MEDIASTINUM: The heart size is normal. No pericardial effusion. The left hilar adenopathy noted previously is smaller and less dense currently measuring about 1.8 centimeters in greatest dimension. Previously, the measurement in the same location was about 2.8 centimeters. PULMONARY ARTERIAL CIRCULATION: There is no visible intraluminal filling defect to suggest pulmonary embolus. LUNGS: There is a nodule in the right middle lobe that measures about 4.5 millimeters. This appears slightly denser than it was on September 14, 2022 and about 2 millimeter larger. There is a spiculated opacity in the superior segment of the left lower lobe measuring about 10 millimeters which is more prominent than it was September 14, 2022. PLEURAL SPACES: There is no pleural effusion, pneumothorax or pleural based mass. VISUALIZED UPPER ABDOMEN: The limited visualized upper abdominal structures appear normal. OSSEOUS STRUCTURES: Age-appropriate appearance. No acute fracture or destructive process. TUBES and LINES: None. IMPRESSION: 1. There is no finding of pulmonary embolus. 2. Left hilar lymph node is smaller than the was September 14, 2022. On the prior study, there was a mass in the right axilla, probably an enlarged lymph node which is no longer present. 3. Right middle lobe nodule slightly larger than previously. Spiculated opacity in the superior segment of the left lobe slightly larger than previously. Please note that all CT scans at this facility use dose modulation, iterative reconstruction, and/or weight-based dosing when appropriate to reduce radiation dose to as low as reasonably achievable. Dictated by Jayro Sun MD @ 11/12/2022 1:39:49 PM (Electronically Signed)
--- NOTE | 2022-11-12 14:50 | ED.NURSE ---
Pt was able to ambulate to the restroom independently. Pt somewhat unsteady during ambulation.
[2022-11-12 15:06] LABS: Appearance Urine Clear (Clear); Bilirubin Urine 1+ (Negative); Blood Urine Trace-lysed (Negative); Color Urine Yellow (Yellow); Glucose Urine Negative (Negative); Ketones Urine 3+ (Negative); Leukocyte Esterase Urine 1+ (Negative); Nitrite Urine Negative (Negative); Protein Urine Negative (Negative); Urobilinogen Urine 0.2 (0.2-1.0); pH Urine 5.5 (5.0-8.5)
[2022-11-12 15:44] LABS: Bacteria Urine Moderate; RBC Urine 0-2 (0-2); Squamous Epithelial Cell Urine Few (None-Few)
== END 2022-11-12 15:47 | disposition home or self-care (01) ==
PROVIDERS: Emergency Provider Family Medicine; PCP Physician Assistant
DX: E86.0 Dehydration (principal); I95.1 Orthostatic hypotension
CPT/HCPCS: 36415; 71046; 71260; 74019; 80053; 81001; 83605; 85025; 85379; 86140; 87040; 87086; 93005; 94761; 99284; 99285; J7030; J7120; Q9967

== ENCOUNTER 2022-11-16 12:14 | Outpatient (RCR) | payer BC, SELFPAY ==
--- NOTE | 2022-11-13 09:28 | ONC.NURNOTE ---
Pest Control Supervisor asked to call patient to see how she is doing, as she was in the ER yesterday for dehydration. Patient did not answer, so left message for patient.
[2022-11-16 12:58] LABS: Basophils Absolute Auto 0.08 K/uL (0.00-0.30); Basophils Percent Auto 1.3 % (0.0-3.0); Eosinophils Absolute Auto 0.27 K/uL (0.00-0.50); Eosinophils Percent Auto 4.2 % (0.0-7.0); Hematocrit 29.2 % (33.0-51.0); Hemoglobin* 9.9 gm/dL (12.0-16.0); Immature Granulocytes Abs Auto 0.01 K/uL (0.00-0.30); Immature Granulocytes Pct Auto 0.2 %; Lymphocytes Absolute Auto 2.01 K/uL (0.90-2.90); Lymphocytes Percent Auto 31.6 % (20-44); Mean Corpuscular HGB Conc 34 gm/dL (32-36); Mean Corpuscular Hemoglobin 31 pg (26-34); Mean Corpuscular Volume 90 fL (80-100); Monocytes Percent Auto 10.8 % (0.0-11.0); Neutrophils Absolute Auto 3.31 K/uL (1.7-7.0); Neutrophils Percent Auto 51.9 % (42.0-72.0); Platelet Count* 230 K/uL (140-440); RDW Coefficient of Variation % 13.4 % (11.5-15.5); Red Blood Count 3.25 m/uL (4.00-5.20); White Blood Count* 6.37 K/uL (4.50-11.00)
[2022-11-16 13:06] LABS: Slide Review Reflex No
[2022-11-16 13:20] LABS: Albumin* 3.8 g/dL (3.3-5.0); Chloride* 102 mmol/L (96-114)
[2022-11-16 13:21] LABS: Potassium* 3.1 mmol/L (3.6-5.1); Sodium* 137 mmol/L (135-149)
[2022-11-16 13:23] LABS: Aspartate Amino Transferase* 47 U/L (12-35); Bilirubin Total* 0.5 mg/dL (0.1-1.5); Carbon Dioxide* 20 mmol/L (20-32); Creatinine* 0.8 mg/dL (0.5-1.5); Estimated Glomerular Filt Rate 90 ml/min; Total Protein* 6.2 g/dL (6.0-8.3)
[2022-11-16 13:24] LABS: Alanine Aminotransferase* 33 U/L (4-35); Alkaline Phosphatase* 51 U/L (40-150); Blood Urea Nitrogen* 10 mg/dL (5-24); Calcium* 10.2 mg/dL (8.4-10.6); Glucose* 79 mg/dL (60-115)
[2022-11-16] MEDS: 0.9 % SODIUM CHLORIDE 1000 ml 1,000 ML IV (13:30)
[2022-11-18 02:29] LABS: Cortisol, Serum 1.2 ug/dL
--- NOTE | 2022-11-20 11:02 | ONC.NURNOTE ---
Received disability paperwork for patient. She is going onto hospice, so paperwork filled out appropriately. Will have it signed by provider on Wednesday and send in. Patient aware.
--- NOTE | 2022-12-01 15:50 | ONC.NURNOTE ---
[facility] called on patients behalf for another extended disability continuous leave of absence for illness form.
--- NOTE | 2023-01-04 16:07 | ONC.NURNOTE ---
Addendum entered by Lola Prince RN 01/05/23 12:48: Received call from pt's daughter Elizabeth saying [facility] would not send information request to [facility]. Agricultural Specialist called [facility] to confirm that [facility] is no longer providing care for pt as she has transitioned care to Hospice. Gave contact info for [facility] to Devyn, service center representative with [facility]. to update Elizabeth. Original Note: Received paperwork for short term disability. Agricultural Specialist called patients daughter to say that would be best to have hospice fill this out since we have not seen patient in almost one month. She notes that last time hospice filled this out, so that is fine. Paperwork shredded as family is aware that hospice should continue to fill out.
--- NOTE | 2023-02-18 12:14 | ONC.NURNOTE ---
Left message for short term disability [employer] to send short term disability paperwork to home care and hospice fax.
== END 2023-05-15 23:59 | disposition home or self-care (01) ==
LOC: CCIC 12:14
PROVIDERS: Internal Medicine Hematology & Oncology; PCP Physician Assistant; Visit Provider Internal Medicine Hematology & Oncology
DX: C34.92 Malignant neoplasm of unspecified part of left bronchus or lung (principal); I95.1 Orthostatic hypotension
CPT/HCPCS: 36415; 80053; 82533; 84443; 85025; 96360; 99212; 99214; 99215; J7030